=== PATIENT | female | born 1990 | race Caucasian/White ===

== ENCOUNTER 2024-07-11 11:18 | Outpatient (AMB) | payer BC, SELFPAY ==
--- NOTE | 2024-07-11 11:25 | MHC.PC.OV ---
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 Intake Note: new patient to establish care Allergies amoxicillin Allergy (Severe, Verified 07/11/24 11:30) Itching Medication List - Last Reconciled 07/11/24 by Gladis Wiley, IRRIGATION TAX ASSESSOR COLLECTOR- etonogestrel-ethinyl estradiol 0.12-0.015 mg/24 hr (NuvaRing) 1 vag ring vaginal Q4W omeprazole 40 mg PO DAILY Tobacco use date assessed: 07/11/24 Dental Screening Dental Screen Date: 07/11/24 Did you have a dental visit in the last 12 months?: Yes Did you have a dental problem in the last 6 months where you did not have access to dental care?: No Was dental information given to patient?: Patient has dentist HPI HPI Comments History of Present Illness Details 34 y/o F with obesity, GERD, chronic low back pain, seasonal allergies, mild intermittent asthma, history of iron-deficiency anemia 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 Surgical hx: None Family hx: Health Maintenance: Pap Flu 07/11/24 Tdap Specialists: Podiatry Dr Will Chiropracter needs new referral. ObGyn Dr Bravo first appt 10/2024 Here today to establish care. Moved here from [place] in September for work No medical records available to me today Reports a history of mild intermittent asthma. Worsened by seasonal allergies of which she uses an antihistamine prn. P.r.n. use of Tierra GERD is well controlled with daily omeprazole. Has had an EGD in the past, reports no hiatal hernia or Rdz's esophagus Did have anemia and was taking daily iron in the past. Her previous PCP advised her to stop taking as her labs did not indicate any further anemia. Denies any overt bleeding Has chronic low back pain. Was seeing a chiropractor in the past with positive relief. Needs a new referral Has an appointment with Podiatry to evaluate painful feet bilat. Reports that she sits with her ankles crossed and has pain with walking She was using NuvaRing in the past however did not have any refills when she moved. Since stopping she has had menstrual irregularities. She denies any chance of or STDs. Has an appointment to establish care with a new bar machine operator production provider with the 1st appointment in October of 2024 Finally she reports that since moving she has gained about 20 lb. She previously was prescribed phentermine by her previous primary care provider however was not taking consistently as she reports that she felt like she was dying and was having terrible personality changes that were intolerable. She did take half the dose and continue to have the same symptoms. Does have a treadmill at home and uses occasionally Exam Awake alert oriented, no acute distress Regular rate and rhythm Lung sounds clear to auscultation bilat Mood and affect appropriate Plan Routine screening labs today Flu shot today Referred to chiropractic medicine for back pain New prescription sent in for NuvaRing. Follow up with bar machine operator production for routine [facility] Omeprazole was refilled, albuterol p.r.n. sent in. Return to office in 4-6 week for a complete physical exam. Please try to have a copy of her medical records sent to me before this for review. This note is constructed using voice recognition software. While every effort has been made to ensure accuracy in inspector type, still errors may have been included Sometimes, these errors may affect the content or meaning of the given sentence . Total time spent caring for the patient today was 40 minutes. This includes time spent before the visit reviewing the chart, time spent during the visit, and time spent after the visit on documentation [facility] Medical History (Updated 07/11/24 @ 12:26 by Gladis Wiley [facility]) Headache GERD (gastroesophageal reflux disease) Sinusitis Asthma Surgical History (Updated 07/11/24 @ 11:37 by Marisol Calderon MA) No pertinent past surgical history Family History (Updated 07/11/24 @ 11:38 by Marisol Calderon MA) Maternal Grandmother Diabetes Cardiovascular disease Paternal Grandmother Cardiovascular disease Paternal Grandfather Cardiovascular disease Social History (Updated 07/11/24 @ 11:33 by Marisol Calderon MA) Household Members: None Both parents involved: No Caregiver staying overnight: No Housing: Apartment Are you a primary manager care management to a significant other at home: No Do you presently have visiting nurse or other home services: No 75 years or older and lives alone: No Alcohol intake: current Alcohol intake frequency: holidays/special occasions only Patient Tobacco Use Status: Never used Tobacco e-Cigarette/Vaping Use: Never Used service: No Current occupational status: employed 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 1. Little interest or pleasure in doing things: not at all 2. Feeling down, depressed, or hopeless: not at all 3. Trouble falling or staying asleep, or sleeping too much: not at all 4. Feeling tired or having little energy: several days 5. Poor appetite or overeating: several days 6. Feeling bad about yourself - or that you are a failure or have let yourself or your family down: not at all 7. Trouble concentrating on things, such as reading the newspaper or watching television: not at all 8. Moving or speaking so slowly that other people could have noticed. Or the opposite - being so fidgety or restless that you have been moving around a lot more than usual: not at all 9. Thoughts that you would be better off or of hurting yourself in some way: not at all Total score: 2 Depression Screening Interpretation: Negative Depression Screening Done: Yes 61383 - PHQ-9 Billing: Yes Source: Developed by Drs. Manav Sales, Minerva Kramer, Yimi Emerson and colleagues, with an educational jermaine from [employer]. Thrive Questionnaire Date Thrive assessed: 07/11/24 I am a: Patient What is your living situation today?: I have a steady place to live Within the past 12 months, did the food you bought not last and you didn't have the money to get more?: Never true Within the past 12 months, did you worry whether your food would run out before you got money to buy more?: Never true Do you have trouble paying for medicines?: No Do you have trouble getting transportation to medical appointments?: No Do you have trouble paying your heating and electricity bill?: No Do you have trouble taking care of your child, family member or friend?: No Do you have trouble with day-to-day activities such as bathing, preparing meals, shopping, managing finances, etc.?: No Are you currently unemployed and looking for a job?: No Are you interested in more education?: No Please select the resources that you would like help with: None Currently or been in a relationship where the following occur: No concerns reported THRIVE Score: 0 AUDIT C Alcohol Use Questionnaire (AUDIT-C) 1. How often do you have a drink containing alcohol?: Never 2. How many drinks containing alcohol do you have on a typical day when you are drinking?: 1 or 2 3. How often do you have six or more drinks on one occasion?: Never Total Score: 0 Score Reviewed/Action Taken: Yes AILEEN-7 AMB Questionnaire AILEEN-7 Date AILEEN - 7 assessed: 07/11/24 Feeling nervous, anxious, or on edge: 0 = Not at all Not being able to stop or control worryin = Not at all Worrying too much about different things: 0 = Not at all Trouble relaxin = Not at all Being so restless that it is hard to sit still: 0 = Not at all Becoming easily annoyed or irritable: 0 = Not at all Feeling afraid as if something awful might happen: 0 = Not at all Total AILEEN-7 score (0-4 normal; 5-9 mild; 10-14 moderate; 15-21 severe): 0 Source: Developed by Drs. Manav Sales, Minerva Kramer, Yimi Emerson and colleagues, with an educational jermaine from [employer]. AILEEN-7 Assessment Billing AILEEN-7 Assessment Tool: AILEEN-7 Assessment 11168 ACT Questionnaire In the past 4 weeks, how much of the time did your asthma keep you from getting as much done at work, school or at home?: None of the time During the past 4 weeks, how often have you had shortness of breath?: Not at all During the past 4 weeks, how often did your asthma symptoms wake you up at night or earlier than usual in the morning?: Not at all During the past 4 weeks, how often have you had to use your rescue inhaler or nebulizer medication?: Not at all How would you rate your asthma control during the past 4 weeks?: Completely controlled ACT Interpretation: Negative Score: 25 Physical exam (Primary Care) Vital Signs: Last Vital Signs Pulse 83 07/11/24 11:28 Resp 13 07/11/24 11:28 BP 124/70 07/11/24 11:28 Pulse Ox 98 07/11/24 11:28 Oxygen Delivery Method Room Air 07/11/24 11:28 BMI result Body Mass Index 39.2 BMI Assessment/Plan discussion: High BMI High, discussed plan: lifestyle Tobacco/Smoking Status: Tobacco use Status Tobacco use date assessed 07/11/24 07/11/24 11:34 Patient Tobacco Use Status Never used Tobacco 07/11/24 11:34 e-Cigarette/Vaping Use Never Used 07/11/24 11:34 PHQ-9: PHQ-9 Score PHQ-9: Total score 2 07/11/24 12:03 Depression Screening Interpretation: Negative Thrive Assessment: Date of Thrive Assessment Date Thrive assessed 07/11/24 07/11/24 11:27 Currently or been in a relationship where the following occur: No concerns reported Office Procedures Flu Questionnaire Does the patient have a severe egg allergy?: No Does the patient have severe life threatening allergies?: No Does the patient have a fever or illness today?: No Has the patient ever had Guillain-Heth Syndrome?: No Has the patient ever had any past reaction to a flu shot?: No Immunizations Fluarix Triv [id number] (PF) 45 mcg (15 mcg x 3)/0.5 mL IM syringe [facility] Administered by: Sarahi Larsen RN on 07/11/24 12:19 Dose Route Admin Location Dispensed Lot Number Expiration Date [facility] 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.5 mL IM Right Deltoid 0.5 mL [id number] 03/24/25 [id number] Make Meaning VIS Given Date VIS Provided VIS Publication Date 07/11/24 Single Vaccine 21 Eligibility Eligibility Date Funding Source Not [facility] Eligible 07/11/24 Private Coding Level of Care Code New Pt Level 3 (92423) Complex EM visit Add On G2211 Diagnoses Mild intermittent asthma without complication J45.20 Chronic midline low back pain without sciatica M54.50; G89.29 Chronicity: chronic Back pain laterality: midline Sciatica presence: without sciatica Gastroesophageal reflux disease with esophagitis without hemorrhage K21.00 Esophagitis bleeding: without hemorrhage Severe obesity (BMI 35.0-39.9) with comorbidity E66.01 Body mass index [BMI] 39.0-39.9, adult Z68.39 History of iron deficiency anemia Z86.2 Seasonal allergies J30.2 Laboratory exam ordered as part of routine general medical examination Z00.00 Additional Codes AILEEN-7 Assessment Billing - AILEEN-7 Assessment Tool: AILEEN-7 Assessment 13726 ([id number]) Asthma Control Questionnaire - ACT Interpretation: Negative ([id number]) Assessment & Plan Assessment & Plan (1) Mild intermittent asthma without complication: Code(s): J45.20 - Mild intermittent asthma, uncomplicated Category: Medical Plan: . (2) Lower back pain: Code(s): M54.50 - Low back pain, unspecified Category: Medical Qualifiers: Chronicity: chronic Back pain laterality: midline Sciatica presence: without sciatica Qualified Code(s): M54.50 - Low back pain, unspecified; G89.29 - Other chronic pain Plan: . (3) GERD with esophagitis: Code(s): K21.00 - Gastro-esophageal reflux disease with esophagitis, without bleeding Category: Medical Qualifiers: Esophagitis bleeding: without hemorrhage Qualified Code(s): K21.00 - Gastro-esophageal reflux disease with esophagitis, without bleeding Plan: . (4) Severe obesity (BMI 35.0-39.9) with comorbidity: Code(s): E66.01 - Morbid (severe) obesity due to excess calories Category: Medical Plan: . (5) Body mass index [BMI] 39.0-39.9, adult: Code(s): Z68.39 - Body mass index [BMI] 39.0-39.9, adult Category: Medical Plan: . (6) History of iron deficiency anemia: Code(s): Z86.2 - Personal history of diseases of the blood and blood-forming organs and certain disorders involving the immune mechanism Category: Medical Plan: . (7) Seasonal allergies: Code(s): J30.2 - Other seasonal allergic rhinitis Category: Medical Plan: . (8) Laboratory exam ordered as part of routine general medical examination: Code(s): Z00.00 - Encounter for general adult medical examination without abnormal findings Category: Medical Plan: . Orders: Orders Hemoglobin A1c Today K21.00 - Gastro-esophageal reflux disease with esophagitis, without bleeding, Z00.00 - Encounter for general adult medical examination without abnormal findings Vitamin B12 and Folate Today K21.00 - Gastro-esophageal reflux disease with esophagitis, without bleeding, Z00.00 - Encounter for general adult medical examination without abnormal findings Lipid Panel Today K21.00 - Gastro-esophageal reflux disease with esophagitis, without bleeding, Z00.00 - Encounter for general adult medical examination without abnormal findings Influenza [id number] Immunization Today Z23 - Encounter for immunization Complete Blood Count no Diff Today K21.00 - Gastro-esophageal reflux disease with esophagitis, without bleeding, Z00.00 - Encounter for general adult medical examination without abnormal findings Comprehensive Met. Panel Today K21.00 - Gastro-esophageal reflux disease with esophagitis, without bleeding, Z00.00 - Encounter for general adult medical examination without abnormal findings Microalbumin, Random (w Creat) Today K21.00 - Gastro-esophageal reflux disease with esophagitis, without bleeding, Z00.00 - Encounter for general adult medical examination without abnormal findings TSH reflex Free T4 Today K21.00 - Gastro-esophageal reflux disease with esophagitis, without bleeding, Z00.00 - Encounter for general adult medical examination without abnormal findings IRON PROFILE Today K21.00 - Gastro-esophageal reflux disease with esophagitis, without bleeding, Z00.00 - Encounter for general adult medical examination without abnormal findings Referrals Chiropractic Referral M54.50 - Low back pain, unspecified Medications: New omeprazole 40 mg PO DAILY 90 caps 3RF albuterol sulfate 90 mcg/actuation 2 puffs inhalation Q4-6H 30 days PRN 8.5 grams 0RF shortness of breath or wheezing etonogestrel-ethinyl estradiol 0.12-0.015 mg/24 hr (NuvaRing) leave in place for 3 weeks of a 4-week cycle 1 vag ring vaginal Q4W 3 ea 12RF Patient Instructions: Walk-In Care (Urgent Care): We Make it Easy Walk-in for urgent medical issues such as: ? Seasonal Allergies ? Insect Bites ? Cough ? Diarrhea ? Acute Asthma Attacks ? Back, Knee or Joint Pain ? Ear Infection ? Fever without a Rash ? Headaches ? Nausea ? [place], Rash or Skin Irritation ? Sore Throat ? Sports Physicals ? Vomiting Most insurances are accepted. Patients do not need to be part of the [facility] to seek care at the walk-in clinic. Locations [address] [facility] [place] [address] ? [phone] [facility] Walk-In Care in [place] provides services to ages 18 and over. Open Monday-Monday: 8 a.m. to 5 p.m. and Monday: 9 a.m. to 3 p.m.* *Hours may vary due to staffing availability. To confirm Walk-In Care hours in [place], please call [phone]. [address] [place] [address] ? [phone] [facility] Walk-In Care in [place] provides services to ages 12 and over. Open Monday-Monday: 8 a.m. to 5 p.m. Hours may vary due to staffing availability. To confirm Walk-In Care hours in [place], please call [phone]. LABORATORY SERVICES: [facility] ? Primary Location [address] [place] [address] Monday through Monday 6:00 AM ? 5:00 PM Monday 7:00 AM ? 11:00 AM* [phone] The [facility] is centrally located near the front entrance of the [facility] for easy outpatient access. Convenient parking is provided for outpatients. *Hours may vary due to staffing availability. To confirm Laboratory hours for any location, please call [phone]. Offsite Location For your convenience, we offer offsite laboratory draw stations at the following locations: [address] [place] [address] ? [address], [facility] Monday through Monday 7:30 AM ? 1:00 PM* [phone] *Hours may vary due to staffing availability. To confirm Laboratory hours for any location, please call [phone]. [place] ? [address] Monday through Monday 6:00 AM ? 3:30 PM* Monday 6:30 AM ? 3 PM* [phone] *Hours may vary due to staffing availability. To confirm Laboratory hours for any location, please call [phone] [place] [address] Monday through Monday 7:30 AM ? 4:00 PM* [phone] *Hours may vary due to staffing availability. To confirm Laboratory hours for any location, please call [phone] [place] [address] Monday through 9:00 AM ? 4:00 PM* *Hours may vary due to staffing availability. To confirm Laboratory hours for any location, please call [phone]. Appointments are not necessary. Walk-ins are welcome. Like all the departments throughout the [facility], our Lab undergoes frequent reviews to ensure the quality and accuracy of test results, and our staff takes special pride in its status as a nationally accredited facility. Patient Portal: ONE PATIENT. ONE RECORD. BETTER CARE. [facility] has a fully integrated, cutting-edge mobile electronic health information system that has revolutionized the way we care for our patients and manage our organization. This system improves communication and coordination enabling us to provide safe, higher-quality care, and an overall positive experience for staff and patients. Our first priority, as always, is to deliver the highest quality care possible. The system is running in the background supporting that priority. This portal is for all [facility] services and practices. If you are experiencing any technical difficulties with enrolling or logging into the Patient Portal please complete the [facility] Patient Portal Technical Support Form. [facility] now offers a new secure on-line interactive tool for patients to review their health information ? Patient Portal. This interactive web portal will enable patients and their families to take an active role in their care by providing easy, secure access to their health information via the internet. The Patient Portal provides patients with instant access to their health information, including laboratory results, medications, allergies, demographic information, visit history, and more. In addition to managing their own care, parents and health care proxies with authorized consent will appreciate the ability to access the records of those individuals for whom they provide care. Please note: if you wish to gain access (Proxy) to another patient?s portal, you will be required to come to the Medical Records Department in person at [facility]. Both the patient giving proxy access and the proxy will need to provide photo identification and complete the appropriate authorization. The Patient Portal also allows track their appointments online. The [facility] Patient Portal also saves patients time by allowing them to submit updates to their demographic and contact information prior to their visits. Portal email notifications will also alert patients to any new activity on their portal, such as test results and new appointments. In order to initially enroll in the [facility] Patient Portal, you will need to enter some required information including the following: ? your [facility] Medical Record number ? your personal home email address ? name ? date of Please note: In order to enroll in the [facility] Patient Portal, we need to have your email address on file in your electronic medical record. The email address needs to be specific for one person (yourself) in order for your Portal enrollment to be successful. You can update your email address in person with our Registration staff when you are registering for a hospital visit. Otherwise, you will need to come to the Health Information Management (Medical Records) Department at [facility]. We are open from Monday ? Monday from 7:30 a.m. ? 4:30 p.m. You will be required to present a photo id. Once you have successfully enrolled in the Patient Portal, you will receive a one-time user id and password for the Portal, sent to your email address. This will allow you to log into the Patient Portal within 99 hrs and reset your own logon id and password, and define personal security questions. Once your permanent login and password have been set, you can log into the [facility] Patient Portal at any time via the blue button above or from the Portal Logon button on any page of the [facility] website. [facility] encourage all of our patients to enroll in Patient Portal as it presents a valuable opportunity for patients and their families to actively participate in their care and stay healthy Welcome to [facility]. We look forward to working with you.
[2024-07-11 11:28] VITALS: BP 124/70; PULSE 83; RESP 13; O2SAT 98; BMI 39.2
== END 2024-07-11 12:23 | disposition home or self-care (01) ==
PROVIDERS: PCP Nurse Practitioner Family; Visit Provider Nurse Practitioner Family
DX: J45.20 Mild intermittent asthma, uncomplicated (principal); M54.50 Low back pain, unspecified; E66.812 Obesity, class 2; Z68.39 Body mass index [BMI] 39.0-39.9, adult; G89.29 Other chronic pain; K21.00 Gastro-esophageal reflux disease with esophagitis, without bleeding; Z86.2 Personal history of diseases of the blood and blood-forming organs and certain disorders involving the immune mechanism; J30.2 Other seasonal allergic rhinitis

== ENCOUNTER → 2024-07-11 11:18 | Outpatient (BNVA) | payer BC, SELFPAY | PROVIDERS: PCP Nurse Practitioner Family; Visit Provider Nurse Practitioner Family | DX: Z00.00 Encounter for general adult medical examination without abnormal findings (principal); J45.20 Mild intermittent asthma, uncomplicated; G89.29 Other chronic pain; M54.50 Low back pain, unspecified; K21.00 Gastro-esophageal reflux disease with esophagitis, without bleeding; E66.01 Morbid (severe) obesity due to excess calories; Z68.39 Body mass index [BMI] 39.0-39.9, adult; J30.2 Other seasonal allergic rhinitis; Z86.2 Personal history of diseases of the blood and blood-forming organs and certain disorders involving the immune mechanism; Z79.899 Other long term (current) drug therapy; Z23 Encounter for immunization | CPT/HCPCS: 90471; 90656; 96127; 96160 ==

== ENCOUNTER 2024-07-11 12:41 | Outpatient (REF) | payer BC, SELFPAY ==
[2024-07-11 14:39] LABS: Estimated Average Glucose 137 mg/dL; Hematocrit 41.2 % (37.0-47.0); Hemoglobin 12.8 g/dl (12.0-16.0); Hemoglobin A1C 153.6638 umol/L; Hemoglobin A1c % 6.4 % (<6.0); Mean Corpuscular HGB Conc 31.1 g/dl (31.0-35.0); Mean Corpuscular Hemoglobin 25.9 pg (27.0-33.0); Mean Corpuscular Volume 83.2 fL (80.0-98.0); Mean Platelet Volume 9.6 fL (9.4-12.3); Platelet Count 376 X10*3/uL (160-400); Red Blood Count 4.95 X10*6/uL (4.20-5.50); Red Cell Distribution Width 14.5 % (11.0-16.0); Total Hemoglobin (HGBA1C) 3282.0831 umol/L; White Blood Count 7.3 X10*3/uL (4.8-10.8)
[2024-07-11 15:00] LABS: Alanine Aminotransferase 27 U/L (0-31); Albumin Level 4.1 g/dL (3.5-5.0); Alkaline Phosphatase 100 U/L (39-117); Anion Gap 8 (12-20); Aspartate Amino Transferase 22 U/L (5-31); Bilirubin Total 0.3 mg/dL (0.0-1.0); Blood Urea Nitrogen 12 mg/dL (9-16); Calcium 8.7 mg/dL (8.4-10.2); Carbon Dioxide 26 mmol/L (22-29); Chloride 108 mmol/L (96-108); Cholesterol 157 mg/dL (<200); Estimated Glomerular Filt Rate > 60; Glucose Random 129 mg/dL (60-115); HDL Cholesterol 39 mg/dL (>40); Iron 28 mcg/dL (30-160); LDL Cholesterol Calculated 84 mg/dL (<100); Percent Iron Saturation 8 % (15-50); Potassium 4.1 mmol/L (3.3-5.1); Sodium 138 mmol/L (135-145); Total Iron Binding Capacity 351 mcg/dL (228-428); Total Protein 6.9 g/dL (6.5-8.0); Triglycerides 172 mg/dL (<150); Unsaturated Iron Binding 323 ug/dL
[2024-07-11 15:15] LABS: TSH reflex Free T4 1.52 uIU/mL (0.32-4.0)
[2024-07-11 15:24] LABS: Creatinine Urine 179.87 mg/dL; Microalbum/Creatinine Ratio Ur 7.7 ug/mg cr (<30)
[2024-07-11 15:27] LABS: Folate 9.9 ng/mL (> or = 4.0); Vitamin B12 573 pg/mL (200-900)
== END 2024-07-11 12:42 | disposition home or self-care (01) ==
LOC: HO.WFDLDS 12:41
PROVIDERS: Visit Provider Nurse Practitioner Family
DX: Z00.00 Encounter for general adult medical examination without abnormal findings (principal); K21.00 Gastro-esophageal reflux disease with esophagitis, without bleeding; Z13.1 Encounter for screening for diabetes mellitus
CPT/HCPCS: 36415; 80053; 80061; 82043; 82570; 82607; 82746; 83036; 83540; 84443; 85027

== ENCOUNTER 2024-08-07 08:06 | Outpatient (AMB) | payer BC, SELFPAY ==
--- NOTE | 2024-08-07 08:08 | MHC.PC.OV ---
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 Gas Distribution Required: No Is last menstrual period known: Yes Last menstrual period: 08/07/24 Post menopausal: No Patient : No Allergies amoxicillin Allergy (Severe, Verified 08/07/24 08:22) Itching Medication List - Last Reconciled 08/07/24 by Gladis Wiley, BOOKKEEPING SERVICE SALES AGENT- albuterol sulfate 90 mcg/actuation 2 puffs inhalation Q4-6H PRN 30 days etonogestrel-ethinyl estradiol 0.12-0.015 mg/24 hr (NuvaRing) 1 vag ring vaginal Q4W omeprazole 40 mg PO DAILY Tobacco use date assessed: 08/07/24 Dental Screening Dental Screen Date: 08/07/24 Did you have a dental visit in the last 12 months?: Yes Did you have a dental problem in the last 6 months where you did not have access to dental care?: No Was dental information given to patient?: Patient has dentist HPI HPI Comments History of Present Illness Details 34 y/o F with obesity, GERD, chronic low back pain, seasonal allergies, mild intermittent asthma, iron-deficiency anemia, prediabetes, AILEEN, family history of breast cancer, ovarian cysts, splenomegaly 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 Surgical hx: None Family hx: Dad , maternal grandmother with breast cancer, type 2 diabetes, heart disease , paternal grandmother with hypertension, stroke and cancer uncertain which kind, maternal aunt with breast cancer Health Maintenance: Pap pending appt, last one 2020 per records, normal Flu 07/11/24 Tdap due* Specialists: Podiatry Dr Will Chiropracter ObGyn Dr Bravo first appt 10/2024 Here today for a CPE The following were reviewed w/ her today: Labs from 07/11/2024 show a normal CBC with the exception of mildly low MCH 25.9, normal electrolytes, normal renal function, random glucose of 129, hemoglobin A1c 6.4% iron and % iron saturation low 28 and 8 with normal TIBC, normal LFTs, cholesterol is 157, LDL is 84, HDL is 39, triglycerides are mildly high at 172 however this was a nonfasting sample, normal B12 TSH and folate, normal urine microalbumin creatinine ratio Recovered from the flu last week. Iron Def anemia, tolerated Iron po in the past w/o GI side effects Prediabetes PHQ - related to wt gain/body image, would like therapy in the future, will hold off on referral @ this time. Asthma - chronic deep cough, since 2014. Has not used inhaler to help the cough. Noticed when eating diary she has this cough; when she does not her cough is better. Does suffer from seasonal allergies - itchy eyes, runny nose. Has occasional swelling of BLE that comes and goes. Plan Start OTC Iron take 1 tab QD. Start Metformin ER 500 mg po QD Cont all meds and care w/ care team Start Zyrtec, advised to take year round. Can consider referral to Allergy/immune in the future if needed; worried about starting daily inhaler w lactose allergy. Advised to monitor salt intake in diet. Elevate feet. Avoid tight restrictive clothing around waist. Avoid prolonged sitting. If edema in lower extremities worsens advised to let me know. Return to the office in 4 months to follow up on prediabetes, iron-deficiency anemia, weight with repeat labs done 1 week before, sooner as needed After patient left I was able to review her primary care records. Reports that the edema in bilateral lower extremities is chronic and she was on hydrochlorothiazide 25 mg previously. Also reports that her asthma was out of control and was referred to pulmonology. Did require an emergency room visit for treatment which included Solu-Medrol and repeated nebulizers. Will need to revisit this going forward. She has had ultrasound imaging done of her left lower extremity in 2022 which was unremarkable. Will also need to consider genetics referral for family hx of breast ca. [facility] Medical History (Updated 08/07/24 @ 15:43 by Gladis Wiley [facility]) History of iron deficiency anemia Headache GERD (gastroesophageal reflux disease) Sinusitis Asthma Surgical History (Updated 07/11/24 @ 11:37 by Marisol Calderon MA) No pertinent past surgical history Family History (Updated 07/11/24 @ 11:38 by Marisol Calderon MA) Maternal Grandmother Diabetes Cardiovascular disease Paternal Grandmother Cardiovascular disease Paternal Grandfather Cardiovascular disease Social History (Updated 07/11/24 @ 11:33 by Marisol Calderon MA) Household Members: None Both parents involved: No Caregiver staying overnight: No Housing: Apartment Are you a primary associate director career services to a significant other at home: No Do you presently have visiting nurse or other home services: No 75 years or older and lives alone: No Alcohol intake: current Alcohol intake frequency: holidays/special occasions only Patient Tobacco Use Status: Never used Tobacco e-Cigarette/Vaping Use: Never Used Second Hand Smoke Exposure: Yes service: No Current occupational status: employed 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 1. Little interest or pleasure in doing things: not at all 2. Feeling down, depressed, or hopeless: not at all 3. Trouble falling or staying asleep, or sleeping too much: not at all 4. Feeling tired or having little energy: several days 5. Poor appetite or overeating: nearly every day 6. Feeling bad about yourself - or that you are a failure or have let yourself or your family down: several days 7. Trouble concentrating on things, such as reading the newspaper or watching television: not at all 8. Moving or speaking so slowly that other people could have noticed. Or the opposite - being so fidgety or restless that you have been moving around a lot more than usual: not at all 9. Thoughts that you would be better off or of hurting yourself in some way: not at all Total score: 5 Depression Screening Interpretation: Negative Depression Screening Done: Yes 47739 - PHQ-9 Billing: Yes Source: Developed by Drs. Manav Sales, Minerva Kramer, Yimi Emerson and colleagues, with an educational jermaine from [employer]. Thrive Questionnaire Date Thrive assessed: 08/07/24 I am a: Patient What is your living situation today?: I have a steady place to live Within the past 12 months, did the food you bought not last and you didn't have the money to get more?: Never true Within the past 12 months, did you worry whether your food would run out before you got money to buy more?: Never true Do you have trouble paying for medicines?: No Do you have trouble getting transportation to medical appointments?: No Do you have trouble paying your heating and electricity bill?: No Do you have trouble taking care of your child, family member or friend?: No Do you have trouble with day-to-day activities such as bathing, preparing meals, shopping, managing finances, etc.?: No Are you currently unemployed and looking for a job?: No Are you interested in more education?: No Please select the resources that you would like help with: None Currently or been in a relationship where the following occur: No concerns reported THRIVE Score: 0 AUDIT C Alcohol Use Questionnaire (AUDIT-C) 1. How often do you have a drink containing alcohol?: Never 3. How often do you have six or more drinks on one occasion?: Never Total Score: 0 Score Reviewed/Action Taken: Yes AILEEN-7 AMB Questionnaire AILEEN-7 Date AILEEN - 7 assessed: 08/07/24 Feeling nervous, anxious, or on edge: 0 = Not at all Not being able to stop or control worryin = Not at all Worrying too much about different things: 0 = Not at all Trouble relaxin = Not at all Being so restless that it is hard to sit still: 0 = Not at all Becoming easily annoyed or irritable: 0 = Not at all Feeling afraid as if something awful might happen: 0 = Not at all Total AILEEN-7 score (0-4 normal; 5-9 mild; 10-14 moderate; 15-21 severe): 0 Source: Developed by Drs. Manav Sales, Minerva Kramer, Yimi Emerson and colleagues, with an educational jermaine from [employer]. AILEEN-7 Assessment Billing AILEEN-7 Assessment Tool: AILEEN-7 Assessment 24474 ACT Questionnaire In the past 4 weeks, how much of the time did your asthma keep you from getting as much done at work, school or at home?: None of the time During the past 4 weeks, how often have you had shortness of breath?: Not at all During the past 4 weeks, how often did your asthma symptoms wake you up at night or earlier than usual in the morning?: Not at all During the past 4 weeks, how often have you had to use your rescue inhaler or nebulizer medication?: 1-2 times a week How would you rate your asthma control during the past 4 weeks?: Completely controlled Score: 22 Review of Systems Const Details: Constitutional: Denies fever. Skin: Denies rash. Eye: Denies eye pain. ENMT: Denies sore throat and nasal congestion. Respiratory: Denies shortness of breath Gastrointestinal: Denies nausea, vomiting or abdominal pain. Cardiovascular: Denies chest pain and syncope. Genitourinary: Denies dysuria. Musculoskeletal: Denies extremity pain. Neurologic: Denies headaches, confusion, and weakness. Psychiatric: Denies suicidal thoughts and substance abuse. Allergy/ Immunologic: Denies impaired immunity. Physical exam (Primary Care) Vital Signs: Last Vital Signs Temp 99.3 F 08/07/24 08:15 Pulse 77 08/07/24 08:15 Resp 16 08/07/24 08:15 BP 110/74 08/07/24 08:15 Pulse Ox 97 08/07/24 08:15 Oxygen Delivery Method Room Air 08/07/24 08:15 BMI result Body Mass Index 39.2 BMI Assessment/Plan discussion: High BMI High, discussed plan: lifestyle Tobacco/Smoking Status: Tobacco use Status Tobacco use date assessed 08/07/24 08/07/24 08:18 Patient Tobacco Use Status Never used Tobacco 08/07/24 08:11 e-Cigarette/Vaping Use Never Used 08/07/24 08:11 PHQ-9: PHQ-9 Score PHQ-9: Total score 5 08/07/24 10:25 Depression Screening Interpretation: Negative Thrive Assessment: Date of Thrive Assessment Date Thrive assessed 08/07/24 08/07/24 08:11 Currently or been in a relationship where the following occur: No concerns reported Const Other: General: Well developed, well nourished, in no acute distress. Appears stated age. Head: Normocephalic, atraumatic. Eyes: Pupils are equal, round and reactive to light and accommodation. Conjunctivae are clear. Vision grossly normal. Ears: TMs clear AU, EACS WNL Nose: Patent, without discharge. Mouth: There are no ulcers or lesions noted. No inflammation, no post nasal drip, no plaques nor exudates. Neck: Supple, no adenopathy or thyromegaly. Lungs: Clear to auscultation bilaterally. No rales, rhonchi or wheeze noted. Good air flow in all bourgeois. Heart: Regular rate and rhythm. No murmurs, click, rubs or gallops are noted. Abdomen: Bowel sounds present in all quadrants. The abdomen is soft, nontender, with no masses or organomegaly noted. No hernias are noted. Musculoskeletal: Joints are nontender, without swelling, redness, or effusions. Range of motion is observed to be normal. Chronic low back pain Pulses: Peripheral pulses are equal and palpable bilaterally. Extremities: No clubbing, cyanosis is noted. Trace to +1 edema bilateral lower extremities Neurologic: Gait and station normal. Cranial Nerves 2-12 intact. Motor strength grossly symmetrical and intact. No sensory loss. Balance normal. Skin: No rashes, ulcers, or lesions noted. Turgor is good. Skin color is good. Hair and nails are without abnormalities. Psych: Normal eye contact, affect and mood appropriate, and normal interactions. Patient is alert and appropriate to context. Coding Level of Care Code Est Pt Prev Care 18-39y(09189) Diagnoses Encounter for general adult medical examination without abnormal findings Z00.00 Mild intermittent asthma without complication J45.20 Iron deficiency anemia, unspecified iron deficiency anemia type D50.9 Iron deficiency anemia type: unspecified iron deficiency Prediabetes R73.03 Splenomegaly R16.1 Cyst of left ovary N83.202 Laterality: left Family history of breast cancer Z80.3 AILEEN (generalized anxiety disorder) F41.1 Additional Codes AILEEN-7 Assessment Billing - AILEEN-7 Assessment Tool: AILEEN-7 Assessment 09179 ([id number]) PHQ-9 - 86546 - PHQ-9 Billing: Yes ([id number]) Assessment & Plan Assessment & Plan (1) Encounter for general adult medical examination without abnormal findings: Code(s): Z00.00 - Encounter for general adult medical examination without abnormal findings Plan: . (2) Mild intermittent asthma without complication: Code(s): J45.20 - Mild intermittent asthma, uncomplicated Category: Medical Plan: . (3) Iron deficiency anemia: Code(s): D50.9 - Iron deficiency anemia, unspecified Category: Medical Qualifiers: Iron deficiency anemia type: unspecified iron deficiency Qualified Code(s): D50.9 - Iron deficiency anemia, unspecified Plan: . (4) Prediabetes: Code(s): R73.03 - Prediabetes Category: Medical Plan: . (5) Splenomegaly: Comment: noted on imaging 2022 Code(s): R16.1 - Splenomegaly, not elsewhere classified Category: Medical Plan: . (6) Ovarian cyst: Comment: noted on imaging 2022 Code(s): N83.209 - Unspecified ovarian cyst, unspecified side Category: Medical Qualifiers: Laterality: left Qualified Code(s): N83.202 - Unspecified ovarian cyst, left side Plan: . (7) Family history of breast cancer: Code(s): Z80.3 - Family history of malignant neoplasm of breast Category: Medical Plan: . (8) AILEEN (generalized anxiety disorder): Code(s): F41.1 - Generalized anxiety disorder Category: Medical Plan: . Orders: Orders Comprehensive Met. Panel 11/23/24 D50.9 - Iron deficiency anemia, unspecified, J45.20 - Mild intermittent asthma, uncomplicated, R73.03 - Prediabetes IRON PROFILE 11/23/24 D50.9 - Iron deficiency anemia, unspecified, J45.20 - Mild intermittent asthma, uncomplicated, R73.03 - Prediabetes Hemoglobin A1c 11/23/24 D50.9 - Iron deficiency anemia, unspecified, J45.20 - Mild intermittent asthma, uncomplicated, R73.03 - Prediabetes Complete Blood Count no Diff 11/23/24 D50.9 - Iron deficiency anemia, unspecified, J45.20 - Mild intermittent asthma, uncomplicated, R73.03 - Prediabetes Medications: New cetirizine (Zyrtec) 10 mg PO DAILY PRN 90 tabs 2RF allergy symptoms metformin ER 500 mg PO QPM 90 tabs 0RF Patient Instructions: Health screenings for women You should visit your health care provider from time to time, even if you are healthy. The purpose of these visits is to: Screen for medical issues Assess your risk for future medical problems Encourage a healthy lifestyle Update vaccinations and other preventive care services Help you get to know your provider in case of an illness Information Even if you feel fine, you should still see your provider for regular checkups. These visits can help you avoid problems in the future. For example, the only way to find out if you have high blood pressure is to have it checked regularly. High blood sugar and high cholesterol levels also may not have any symptoms in the early stages. A simple blood test can check for these conditions. There are specific times when you should see your provider or receive specific health screenings. The [place] Preventive Services Task Force publishes a list of recommended screenings. Below are screening guidelines for women ages 18 to 39. BLOOD PRESSURE SCREENING Your blood pressure should be checked at least once every 3 to 5 years if: Your blood pressure is in the normal range (top number less than 120 mm Hg and bottom number less than 80 mm Hg) You don't have risk factors for high blood pressure Ask your provider if you need your blood pressure checked more often if: The top number is 120 to 129 mm Hg or the bottom number is 70 to 79 mm Hg You have diabetes, heart disease, kidney problems, are overweight, or have certain other health conditions You have a first-degree relative with high blood pressure You are Black You had high blood pressure during a If the top number is 130 mm Hg or greater or the bottom number is 80 mm Hg or greater, this is considered stage 1 hypertension. Schedule an appointment with your provider to learn how you can reduce your blood pressure. Watch for blood pressure screenings in your area. Ask your provider if you can stop in to have your blood pressure checked. BREAST CANCER SCREENING Experts do not agree about the benefits of breast self-exams in finding breast cancer or saving lives. Talk to your provider about what is best for you. A screening mammogram is not recommended for most women under age 40. Your provider may discuss and recommend mammograms, MRI scans, or ultrasounds if you have an increased risk for breast cancer, such as: A mother or sister who had breast cancer at a young age (most often starting screening earlier than the age the close relative was diagnosed) You carry a high-risk genetic marker CERVICAL CANCER SCREENING Cervical cancer screening should start at age 21 years unless your provider advises otherwise. After the first test: Women ages 21 through 29 should have a Pap test every 3 years. Exoprts do not agree on whether HPV testing is recommended for this age group. Women ages 30 through 65 should be screened with either a Pap test every 3 years or the HPV test every 5 years or both tests every 5 years (called cotesting ). Women who have been treated for precancer (cervical dysplasia) should continue to have Pap tests for 20 years after treatment or until age 65, whichever is longer. If you have had your uterus and cervix removed (total hysterectomy), and you have not been diagnosed with cervical cancer or precancer (high grade cervical neoplasia), you do not need cervical cancer screening. CHOLESTEROL SCREENING Cholesterol screening should begin at: Age 45 for women with no known risk factors for coronary heart disease Age 20 for women with known risk factors for coronary heart disease Repeat cholesterol screening should take place: Every 5 years for women with normal cholesterol levels More often if changes occur in lifestyle (including weight gain and diet) More often if you have diabetes, heart disease, kidney problems, or certain other conditions DIABETES SCREENING You should be screened for diabetes starting at age 35 and then repeated every 3 years if you have no risk factors for diabetes. Screening may need to start earlier and be repeated more often if you have other risk factors for diabetes, such as: You have a first degree relative with diabetes. You are overweight or have obesity. You have high blood pressure, prediabetes, or a history of heart disease. Screening for diabetes should be done if you are planning to become and you are overweight and have other risk factors such as high blood pressure. DENTAL EXAM Go to the dentist once or twice every year for an exam and cleaning. Your dentist will evaluate if you need more frequent visits. EYE EXAM Have an eye exam every 5 to 10 years before age 40. If you have vision problems, have an eye exam every 2 years or more often if recommended by your provider. You should have an eye exam that includes an examination of your retina (back of your eye) at least every year if you have diabetes. IMMUNIZATIONS Commonly needed vaccines include: Flu shot: get one every year. COVID-19 vaccine: ask your provider what is best for you. Tetanus-diphtheria and acellular pertussis (Tdap) vaccine: have one at or after age 19 as one of your tetanus-diphtheria vaccines if you did not receive it as an adolescent. Tetanus-diphtheria: have a booster (or Tdap) every 10 years. Varicella vaccine: receive 2 doses if you never had chickenpox or the varicella vaccine. Hepatitis B vaccine: receive 2, 3, or 4 doses, depending on your exact circumstances. Measles, mumps, and rubella (MMR) vaccine: receive 1 to 2 doses if you are not already immune to MMR. Your provider can tell you if you are immune. Ask your provider about the human papillomavirus (HPV) vaccine if: You have not received the HPV vaccine in the past You have not completed the full vaccine series (you should catch up on this shot) Ask your provider if you should receive other immunizations if you have certain health problems that increase your risk for some diseases such as pneumonia. INFECTIOUS DISEASE SCREENING Women who are sexually active should be screened for chlamydia and gonorrhea up until age 25. Women 25 years and older should be screened for chlamydia and gonorrhea if at high risk. Screening for hepatitis C: All adults ages 18 to 79 should get a one-time test for hepatitis C. people should be screened at every . Screening for human immunodeficiency virus (HIV): All people ages 15 to 65 should get a one-time test for HIV. Depending on your lifestyle and medical history, you may also need to be screened for infections such as syphilis and HIV, as well as other infections. PHYSICAL EXAM All adults should visit their provider from time to time, even if they are healthy. The purpose of these visits is to: Screen for disease Assess your risk of future medical problems Encourage a healthy lifestyle Update your vaccinations and other preventive care services Maintain a relationship with a provider in case of an illness Your height, weight, and BMI should be checked at every exam. During your exam, your provider may ask you about: Depression and anxiety Diet and exercise Alcohol and tobacco use Safety issues, such as using seat belts, smoke detectors, and intimate partner violence Your medicines and risk for interactions SKIN SELF-EXAM Your provider may check your skin for signs of skin cancer, especially if you're at high risk, such as if you: Have had skin cancer before Have close relatives with skin cancer Have a weakened immune system OTHER SCREENING Talk with your provider about colon cancer screening if you have a strong family history of colon cancer or polyps, or if you have had inflammatory bowel disease or polyps yourself. Routine bone density screening of women under 40 is not recommended.
[2024-08-07 08:15] VITALS: BP 110/74; PULSE 77; RESP 16; TEMP 37.4; O2SAT 97; BMI 39.2
== END 2024-08-07 08:57 | disposition home or self-care (01) ==
PROVIDERS: PCP Nurse Practitioner Family; Visit Provider Nurse Practitioner Family
DX: Z00.00 Encounter for general adult medical examination without abnormal findings (principal); J45.20 Mild intermittent asthma, uncomplicated; D50.9 Iron deficiency anemia, unspecified; R73.03 Prediabetes; R16.1 Splenomegaly, not elsewhere classified; N83.202 Unspecified ovarian cyst, left side; Z80.3 Family history of malignant neoplasm of breast; F41.1 Generalized anxiety disorder

== ENCOUNTER → 2024-08-07 08:06 | Outpatient (BNVA) | payer BC, SELFPAY | PROVIDERS: PCP Nurse Practitioner Family; Visit Provider Nurse Practitioner Family | DX: Z00.00 Encounter for general adult medical examination without abnormal findings (principal); J45.20 Mild intermittent asthma, uncomplicated; D50.9 Iron deficiency anemia, unspecified; R73.03 Prediabetes; R16.1 Splenomegaly, not elsewhere classified; N83.202 Unspecified ovarian cyst, left side; F41.1 Generalized anxiety disorder; Z80.3 Family history of malignant neoplasm of breast | CPT/HCPCS: 96127; 96160 ==

== ENCOUNTER 2024-11-26 08:18 | Outpatient (REF) | payer SELFPAY ==
[2024-11-26 11:32] LABS: Hematocrit 42.4 % (37.0-47.0); Hemoglobin 13.9 g/dl (12.0-16.0); Mean Corpuscular HGB Conc 32.8 g/dl (31.0-35.0); Mean Corpuscular Hemoglobin 28.6 pg (27.0-33.0); Mean Corpuscular Volume 87.2 fL (80.0-98.0); Mean Platelet Volume 9.3 fL (9.4-12.3); Platelet Count 313 X10*3/uL (160-400); Red Blood Count 4.86 X10*6/uL (4.20-5.50); Red Cell Distribution Width 13.3 % (11.0-16.0); White Blood Count 6.4 X10*3/uL (4.8-10.8)
[2024-11-26 11:50] LABS: Estimated Average Glucose 131 mg/dL; Hemoglobin A1c % 6.2 % (<6.0)
[2024-11-26 12:03] LABS: Alanine Aminotransferase 8 U/L (0-31); Albumin Level 3.7 g/dL (3.5-5.0); Alkaline Phosphatase 72 U/L (39-117); Anion Gap 10 (12-20); Aspartate Amino Transferase 17 U/L (5-31); Bilirubin Total 0.3 mg/dL (0.0-1.0); Blood Urea Nitrogen 13 mg/dL (9-16); Calcium 8.3 mg/dL (8.4-10.2); Carbon Dioxide 23 mmol/L (22-29); Chloride 110 mmol/L (96-108); Estimated Glomerular Filt Rate > 60; Glucose Random 124 mg/dL (60-115); Iron 65 mcg/dL (30-160); Percent Iron Saturation 22 % (15-50); Sodium 139 mmol/L (135-145); Total Iron Binding Capacity 294 mcg/dL (228-428); Total Protein 6.8 g/dL (6.5-8.0); Unsaturated Iron Binding 229 ug/dL
== END 2024-11-26 08:19 | disposition home or self-care (01) ==
LOC: HO.WFDLDS 08:18
PROVIDERS: Visit Provider Nurse Practitioner Family
DX: D50.9 Iron deficiency anemia, unspecified (principal); R73.03 Prediabetes; J45.20 Mild intermittent asthma, uncomplicated
CPT/HCPCS: 36415; 80053; 83036; 83540; 85027

== ENCOUNTER 2024-12-03 08:19 | Outpatient (AMB) | payer BC, SELFPAY ==
--- NOTE | 2024-12-03 08:25 | MHC.PC.OV ---
Vital Signs 12/03/24 08:38 Height 5 ft 3 in Weight 219 lb 6 oz BMI 38.9 BP 96/65 Blood Pressure Location Lt brachial Position Sitting Respiration 12 Pulse 58 Pulse Source Pulse Oximeter Temp 97.1 F Temp Source Oral Pulse Oximetry (%) 97 Oxygen Delivery Method Room Air Intake Visit Reasons: 4 mo 30 min fu prediab,anemia, wt labs 1 week Intake Note: 4 month follow up Piano Builder Required: No Allergies amoxicillin Allergy (Severe, Verified 12/03/24 09:06) Itching Medication List - Last Reconciled 12/03/24 by Gladis Wiley, [facility]- albuterol sulfate 90 mcg/actuation 2 puffs inhalation Q4-6H PRN 30 days etonogestrel-ethinyl estradiol 0.12-0.015 mg/24 hr (NuvaRing) 1 vag ring vaginal Q4W levocetirizine 5 mg PO DAILY PRN metformin ER 500 mg PO QPM omeprazole 40 mg PO DAILY Tobacco use date assessed: 12/03/24 Dental Screening Dental Screen Date: 12/03/24 Did you have a dental visit in the last 12 months?: Yes Did you have a dental problem in the last 6 months where you did not have access to dental care?: No Was dental information given to patient?: Patient has dentist HPI HPI Comments History of Present Illness Details 34 y/o F with obesity, GERD, chronic low back pain, seasonal allergies, mild intermittent asthma, iron-deficiency anemia, prediabetes, AILEEN, family history of breast cancer, ovarian cysts, splenomegaly 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 Surgical hx: None Family hx: Dad , maternal grandmother with breast cancer, type 2 diabetes, heart disease , paternal grandmother with hypertension, stroke and cancer uncertain which kind, maternal aunt with breast cancer Health Maintenance: Pap pending appt, last one 2020 per records, normal Flu 07/11/24 Tdap due* Specialists: Podiatry Dr Will using insoles Chiropractor- no longer going ObGyn Dr Bravo first appt 10/2024 concern for PCOS Here today for routine of conditions New complaints Blood nose, left side, self limiting. no trauma or nasal spray use. started during winter months Feeling more irritable and anxious at times. Was on Paxil after the of her father but stopped as it made her feel happening and she did not think that she should be happy active the of her father. She recently moved in with her on. While this is a good situation it is a change in her social environment. She has joined a temple. She wonders if there is any religious counseling that she was able to attend. She is considering starting a happy gummy which is [id number]-[id number] GERD - not taking PPI forgets in the AM. cont w/ sx. Asthma reports that she has a wheezing at night she is not using her inhaler Seasonal allergies taking Xyzal which seems to have improved her allergy symptoms however she continues with nasal congestion and some coughing symptoms are worse at night interested in allergy referral Saw security operations analyst. Reports there was a concern for PCOS. Prediabetes her A1c has improved she is tolerating metformin weight is down 3 lb she started intermittent fasting She saw Podiatry for the pain and swelling in her feet it was improved after the start of orthotics Iron-deficiency anemia is resolved with the use of iron once a day she was having no GI side effects she denies any overt bleeding She was complaining of low energy which did seem to improve after taking the iron supplement however this seems to continue she can correlate it directly with her mood she wonders if she was seasonal affective disorder Denies si/hi. General: Well developed, well nourished, in no acute distress. Appears stated age. Head: Normocephalic, atraumatic. Eyes: Pupils are equal, round and reactive to light and accommodation. Conjunctivae are clear. Vision grossly normal. Ears: TMs intact + congestion bilat L>R Nose: turbinates pale and edematous, dry and bloody on the L, clear drainage no sinus tenderness Mouth: There are no ulcers or lesions noted. No inflammation, no post nasal drip, no plaques nor exudates. Lungs: Clear to auscultation bilaterally. No rales, rhonchi or wheeze noted. Good air flow in all bourgeois. Heart: Regular rate and rhythm. No murmurs, click, rubs or gallops are noted. Extremities: No clubbing, cyanosis is noted. trace edema ble Psych: Normal eye contact, affect and mood appropriate, and normal interactions. Patient is alert and appropriate to context. Tearful when talking about of Dad. Results Labs 3/4/25 normal CBC normal electrolytes normal renal function random glucose 124 hemoglobin A1c improved at 6.2% (6.4%) calcium low at 8.3 normal iron profile normal liver profile Discussion Notes I discussed with the patient the multiple chronic conditions, including iron deficiency anemia and prediabetes, and the ongoing management strategies to optimize health outcomes. I emphasized the importance of continuing iron supplements and discussed the potential benefit of increasing the metformin dosage to enhance glycemic control, particularly if PCOS is confirmed. We outlined the need for allergy/immunology consultation in [place] to assess and manage persistent allergic symptoms. I advised continuing current treatments for asthma and outlined the potential need for a daily inhaler if symptoms persist. We reviewed the patient's psychological well-being, particularly considering environmental triggers for mood disturbance, and the subsequent pursuit of Christianity-based counseling, while ensuring safety by assessing mood stability. The patient consented to treatment changes and agreed on the outlined plans for diagnostic and therapeutic follow-ups. Assessment and Plan 1. Iron Deficiency Anemia: The patient's iron deficiency anemia is well managed with current supplementation, showing stable energy levels. Recommended to continue current regime allowing for further monitoring. 2. Prediabetes: Improvement noted in HbA1c. Increased metformin dosage prescribed to enhance control. Advise adherence to current lifestyle modifying regime for further benefit. 3. Seasonal Allergic Rhinitis: Symptoms warrant referral to an heating repair technician for detailed assessment. Continued Xyzal and environmental adjustments implemented to alleviate symptoms. 4. Edema: Resolved with orthotics and dietary adjustments, no additional interventions required. 5. Asthma: Mild controlled symptoms observed, advised appropriate albuterol use during nocturnal episodes. Further assessment might introduce more robust control, allergists consulted as necessary. 6. Mood Disturbance: Suggested Christianity-based counseling referral to address mood symptoms exacerbated by seasonal and situational changes. Continuous mental health monitoring, initiating pharmacotherapy if warranted. ok to try otc happy gummy 7. Polycystic Ovary Syndrome (Suspected): Referral to gynecology and managing through weight control protocols and enhanced metformin strategy. 8. GERD take PPI at HS Patient Instructions - Continue taking prescribed iron supplements daily. - Take increased metformin dosage of 750 mg as directed. - Use Xyzal as prescribed for allergies and try saline nasal sprays to ease dryness. - Avoid salt to manage edema. - Use the albuterol inhaler as needed during wheezing episodes. - Pursue Christianity-based counseling to address mood concerns. - Take omeprazole at HS - Follow up in three months with labs done one week before the appointment. Consent Patient was informed and verbally consented to the use of an ambient scribe for clinic note documentation during this visit. Total time spent caring for the patient today was 40 minutes. This includes time spent before the visit reviewing the chart, time spent during the visit, and time spent after the visit on documentation, reviewing laboratory results, diagnostic imaging, medications, performing a medically necessary evaluation, counseling on diagnoses, care coordination, ordering appropriate tests, ordering appropriate medications, review of tests performed by other providers, reporting test results with the patient, communication with other healthcare providers. [facility] Medical History History of iron deficiency anemia Headache GERD (gastroesophageal reflux disease) Sinusitis Asthma Surgical History No pertinent past surgical history Family History Maternal Grandmother Diabetes Cardiovascular disease Paternal Grandmother Cardiovascular disease Paternal Grandfather Cardiovascular disease Social History Household Members: None Both parents involved: No Caregiver staying overnight: No Housing: Apartment Are you a primary aged or disabled care worker to a significant other at home: No Do you presently have visiting nurse or other home services: No 75 years or older and lives alone: No Alcohol intake: current Alcohol intake frequency: holidays/special occasions only Patient Tobacco Use Status: Never used Tobacco e-Cigarette/Vaping Use: Never Used Second Hand Smoke Exposure: Yes service: No Current occupational status: employed 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 1. Little interest or pleasure in doing things: several days 2. Feeling down, depressed, or hopeless: several days 3. Trouble falling or staying asleep, or sleeping too much: several days 4. Feeling tired or having little energy: nearly every day 5. Poor appetite or overeating: not at all 6. Feeling bad about yourself - or that you are a failure or have let yourself or your family down: more than half the days 7. Trouble concentrating on things, such as reading the newspaper or watching television: not at all 8. Moving or speaking so slowly that other people could have noticed. Or the opposite - being so fidgety or restless that you have been moving around a lot more than usual: not at all 9. Thoughts that you would be better off or of hurting yourself in some way: not at all Total score: 8 Depression Screening Interpretation: Positive Depression Screening Follow-up: Existing condition Depression Screening Done: Yes 33874 - PHQ-9 Billing: Yes Source: Developed by Drs. Manav Sales, Minerva Kramer, Yimi Emerson and colleagues, with an educational jermaine from [employer]. Thrive Questionnaire Date Thrive assessed: 12/03/24 I am a: Patient What is your living situation today?: I have a steady place to live Within the past 12 months, did the food you bought not last and you didn't have the money to get more?: Never true Within the past 12 months, did you worry whether your food would run out before you got money to buy more?: Never true Do you have trouble paying for medicines?: No Do you have trouble getting transportation to medical appointments?: No Do you have trouble paying your heating and electricity bill?: No Do you have trouble taking care of your child, family member or friend?: No Do you have trouble with day-to-day activities such as bathing, preparing meals, shopping, managing finances, etc.?: No Are you currently unemployed and looking for a job?: No Are you interested in more education?: No Please select the resources that you would like help with: None Currently or been in a relationship where the following occur: No concerns reported THRIVE Score: 0 AUDIT C Alcohol Use Questionnaire (AUDIT-C) 1. How often do you have a drink containing alcohol?: Never 3. How often do you have six or more drinks on one occasion?: Never Total Score: 0 Score Reviewed/Action Taken: Yes AILEEN-7 AMB Questionnaire AILEEN-7 Date AILEEN - 7 assessed: 12/03/24 Feeling nervous, anxious, or on edge: 0 = Not at all Not being able to stop or control worryin = Not at all Worrying too much about different things: 0 = Not at all Trouble relaxin = Not at all Being so restless that it is hard to sit still: 1 = Several days Becoming easily annoyed or irritable: 2 = More than half the days Feeling afraid as if something awful might happen: 0 = Not at all Total AILEEN-7 score (0-4 normal; 5-9 mild; 10-14 moderate; 15-21 severe): 3 Source: Developed by Drs. Manav Sales, Minerva Kramer, Yimi Emerson and colleagues, with an educational jermaine from [employer]. AILEEN-7 Assessment Billing AILEEN-7 Assessment Tool: AILEEN-7 Assessment 25073 Physical exam (Primary Care) Vital Signs: Last Vital Signs Temp 97.1 F 12/03/24 08:38 Pulse 58 12/03/24 08:38 Resp 12 12/03/24 08:38 BP 96/65 12/03/24 08:38 Pulse Ox 97 12/03/24 08:38 Oxygen Delivery Method Room Air 12/03/24 08:38 BMI result Body Mass Index 38.9 BMI Assessment/Plan discussion: High BMI High, discussed plan: lifestyle Tobacco/Smoking Status: Tobacco use Status Tobacco use date assessed 12/03/24 12/03/24 08:26 Patient Tobacco Use Status Never used Tobacco 12/03/24 08:26 e-Cigarette/Vaping Use Never Used 12/03/24 08:26 PHQ-9: PHQ-9 Score PHQ-9: Total score 8 12/03/24 08:26 Depression Screening Interpretation: Positive Depression Screening Follow-up: Existing condition Thrive Assessment: Date of Thrive Assessment Date Thrive assessed 12/03/24 12/03/24 08:26 Currently or been in a relationship where the following occur: No concerns reported Coding Level of Care Code Est Pt Level 5 (91036) Complex EM visit Add On G2211 Diagnoses Iron deficiency anemia, unspecified iron deficiency anemia type D50.9 Iron deficiency anemia type: unspecified iron deficiency Seasonal allergies J30.2 AILEEN (generalized anxiety disorder) F41.1 Gastroesophageal reflux disease with esophagitis without hemorrhage K21.00 Esophagitis bleeding: without hemorrhage Mild intermittent asthma without complication J45.20 Prediabetes R73.03 Body mass index [BMI] 39.0-39.9, adult Z68.39 Severe obesity (BMI 35.0-39.9) with comorbidity E66.01 Additional Codes AILEEN-7 Assessment Billing - AILEEN-7 Assessment Tool: AILEEN-7 Assessment 58636 ([id number]) PHQ-9 - 07283 - PHQ-9 Billing: Yes ([id number]) Assessment & Plan Assessment & Plan (1) Iron deficiency anemia: Code(s): D50.9 - Iron deficiency anemia, unspecified Category: Medical Qualifiers: Iron deficiency anemia type: unspecified iron deficiency Qualified Code(s): D50.9 - Iron deficiency anemia, unspecified (2) Seasonal allergies: Code(s): J30.2 - Other seasonal allergic rhinitis Category: Medical (3) AILEEN (generalized anxiety disorder): Code(s): F41.1 - Generalized anxiety disorder Category: Medical (4) GERD with esophagitis: Code(s): K21.00 - Gastro-esophageal reflux disease with esophagitis, without bleeding Category: Medical Qualifiers: Esophagitis bleeding: without hemorrhage Qualified Code(s): K21.00 - Gastro-esophageal reflux disease with esophagitis, without bleeding (5) Mild intermittent asthma without complication: Code(s): J45.20 - Mild intermittent asthma, uncomplicated Category: Medical (6) Prediabetes: Code(s): R73.03 - Prediabetes Category: Medical (7) Body mass index [BMI] 39.0-39.9, adult: Code(s): Z68.39 - Body mass index [BMI] 39.0-39.9, adult Category: Medical (8) Severe obesity (BMI 35.0-39.9) with comorbidity: Code(s): E66.01 - Morbid (severe) obesity due to excess calories Category: Medical Plan . Orders: Orders Hemoglobin A1c 3 Months D50.9 - Iron deficiency anemia, unspecified, J30.2 - Other seasonal allergic rhinitis Complete Blood Count no Diff 3 Months D50.9 - Iron deficiency anemia, unspecified, J30.2 - Other seasonal allergic rhinitis Lipid Panel 3 Months D50.9 - Iron deficiency anemia, unspecified, J30.2 - Other seasonal allergic rhinitis Comprehensive Met. Panel 3 Months D50.9 - Iron deficiency anemia, unspecified, J30.2 - Other seasonal allergic rhinitis IRON PROFILE 3 Months D50.9 - Iron deficiency anemia, unspecified, J30.2 - Other seasonal allergic rhinitis Referrals Nurse Navigator Referral F41.1 - Generalized anxiety disorder Allergy & Immunology Referral J30.2 - Other seasonal allergic rhinitis Medications: New metformin ER 750 mg PO QPM 90 tabs 0RF Discontinued metformin ER Discontinued Reason: Doctor's Order 500 mg PO QPM 90 tabs 0RF
[2024-12-03 08:38] VITALS: BP 96/65; PULSE 58; RESP 12; TEMP 36.2; O2SAT 97; BMI 38.9
== END 2024-12-03 09:37 | disposition home or self-care (01) ==
LOC: HO.HMCFM 08:19
PROVIDERS: PCP Nurse Practitioner Family; Visit Provider Nurse Practitioner Family
DX: D50.9 Iron deficiency anemia, unspecified (principal); Z68.39 Body mass index [BMI] 39.0-39.9, adult; E66.01 Morbid (severe) obesity due to excess calories; J30.2 Other seasonal allergic rhinitis; F41.1 Generalized anxiety disorder; K21.00 Gastro-esophageal reflux disease with esophagitis, without bleeding; J45.20 Mild intermittent asthma, uncomplicated; R73.03 Prediabetes

== ENCOUNTER → 2024-12-03 08:19 | Outpatient (BNVA) | payer SELFPAY | PROVIDERS: PCP Nurse Practitioner Family; Visit Provider Nurse Practitioner Family | DX: D50.9 Iron deficiency anemia, unspecified (principal); J30.2 Other seasonal allergic rhinitis; F41.1 Generalized anxiety disorder; K21.00 Gastro-esophageal reflux disease with esophagitis, without bleeding; J45.20 Mild intermittent asthma, uncomplicated; R73.03 Prediabetes; E66.01 Morbid (severe) obesity due to excess calories; Z68.39 Body mass index [BMI] 39.0-39.9, adult; F39 Unspecified mood [affective] disorder; Z79.84 Long term (current) use of oral hypoglycemic drugs | CPT/HCPCS: 96127 ==

== ENCOUNTER 2025-02-28 09:02 | Outpatient (REF) | payer BC, SELFPAY ==
--- OUTSIDE RECORDS SUMMARY | 2025-02-28 09:25 | XMS_ITS | Patient Health Record ---
[facility] Address [address] [place] [address] Care Team Providers Care Oil Speculator Name Role Phone Gladis Thompson Primary Care Provider Unavailab kapadia Bev Will Unavailable [phone] Allergies Allergen (clinical drug ingredient) Drug/Non Drug Allergy documented on EMR Reaction Allergy Type Onset Date Status amoxicillin Amoxicillin Unknown Drug Allergy Act rosalia Results Component Value Reference Range Notes X ray : Foot, left 3V Reviewed date:08/29/2024 02:55:03 PM Interpretation:See Examination above Performing Lab: Notes/Report: See Examination above X ray : Foot, right 3V Reviewed date:08/29/2024 02:55:12 PM Interpretation:See Examination above Performing Lab: Notes/Report: See Examination above Reason For Referral No Information Medications Medication SIG (Take, Route, Frequency, Duration) Notes Start Date End Date Status Omeprazole Active Iron Active hydroCHLOROthiazide 12.5 MG TAKE 1 CAPSU LE BY MOUTH DAILY NEEDED FOR LEG SWEELING Oral for 90 Days Active metFORMIN HCl Active Albuterol Sulfate (2.5 MG/3M L) 0.083% TAKE 3 ML BY NEBULIZATION EVERY 6 HOURS NEEDED FOR WHEEZING OR SHORTNESS OF BREATH Inhalation for 5 Days Active Etonogestrel-Ethinyl Estradi ol 0.12-0.015 MG/24HR _insert 1 RING VAGINALLY FOR 3 WEEKS THEN 1 WEEK OFF EVERY MONTH Vaginal for 84 Days Active Voltaren 1 % as directed Externally 08/29/2024 Active Social History Tobacco Use: Social History Observation Description Date Details (start date - stop date) Never Smoker NA - NA Tobacco Use/Smoking Question Answer Notes Are you a: nonsmoker Additional Findings: Tobacco Non-User Current no n-smoker Alcohol Screen Question Answer Notes Did you have a drink containing alcohol in the p ast year? No Points 0 Interpretation Negative Tobacco use other than smoking: Question Answer Notes Are you an other tobacco user? No Vital Signs Blood pressure diastolic 80 mm Hg 12/02/2024 Height 5ft2in in 12/02/2024 Blood pressure systolic 120 mm Hg 12/02/2024 Weight 205 lbs 12/02/2024 BMI 37.49 kg/m2 12/02/2024 Encounters Encounter Location Date Provider Diagnosis [address] [address] 08/29/2024 Bev Black Pain in left foot M79.672 ; Pain in left ankle and joints of left foot M25.572 ; Bursitis of intermetatarsal bursa of left foot M77.52 ; Metatarsalgia, left foot M77.42 ; Right foot pain M79.671 ; Arthralgia of right foot M25.571 ; Bursitis of right foot M77.51 ; Left foot pain M79.672 ; Arthralgia of left foot M25.572 ; Bursitis of left foot M77.52 ; Peroneal tendinitis of right lower extremity M76.71 ; Peroneal tendinitis of left lower extremity M76.72 and Metatarsalgia of right foot M77.[address] [address] 12/02/2024 Bev Black Pain in left foot M79.672 ; Peroneal tendinitis of left lower extremity M76.72 ; Pain in left ankle and joints of left foot M25.572 ; Bursitis of intermetatarsal bursa of left foot M77.52 ; Metatarsalgia, left foot M77.42 ; Right foot pain M79.671 ; Arthralgia of right foot M25.571 ; Bursitis of right foot M77.51 ; Left foot pain M79.672 ; Arthralgia of left foot M25.572 ; Bursitis of left foot M77.52 ; Peroneal tendinitis of right lower extremity M76.71 and Metatarsalgia of right foot M77.41 [facility] [address] [address] 05/23/2024 Bev Will [facility] [address] [address] 06/24/2024 Bev Will [facility] [address] [address] 08/29/2024 Bev Will Assessments Encounter Date Diagnosis (ICD Code) Assessment Notes Treatment Notes Treatment Clinical Notes Section Notes 08/29/2024 Pain in left ankle and joints of left foot (ICD-10 - M25.572) 08/29/2024 Pain in left foot (ICD-10 - M79.672) 12/02/2024 Pain in left foot (ICD-10 - M79.672) 12/02/2024 Peroneal tendinitis of left lower extremity (ICD-10 - M76.72) 12/02/2024 Pain in left ankle and joints of left foot (ICD-10 - M25.572) 08/29/2024 Bursitis of intermetatarsal bursa of left foot (ICD-10 - M77.52) 08/29/2024 Metatarsalgia, left foot (ICD-10 - M77.42) 12/02/2024 Bursitis of intermetatarsal bursa of left foot (ICD-10 - M77.52) 12/02/2024 Metatarsalgia, left foot (ICD-10 - M77.42) 08/29/2024 Right foot pain (ICD-10 - M79.671) 08/29/2024 Arthralgia of right foot (ICD-10 - M25.571) 12/02/2024 Right foot pain (ICD-10 - M79.671) 12/02/2024 Arthralgia of right foot (ICD-10 - M25.571) 08/29/2024 Bursitis of right foot (ICD-10 - M77.51) 08/29/2024 Left foot pain (ICD-10 - M79.672) 12/02/2024 Bursitis of right foot (ICD-10 - M77.51) 12/02/2024 Left foot pain (ICD-10 - M79.672) 08/29/2024 Arthralgia of left foot (ICD-10 - M25.572) 08/29/2024 Bursitis of left foot (ICD-10 - M77.52) 12/02/2024 Arthralgia of left foot (ICD-10 - M25.572) 12/02/2024 Bursitis of left foot (ICD-10 - M77.52) 08/29/2024 Peroneal tendinitis of right lower extremity (ICD-10 - M76.71) 08/29/2024 Peroneal tendinitis of left lower extremity (ICD-10 - M76.72) 12/02/2024 Peroneal tendinitis of right lower extremity (ICD-10 - M76.71) Patient Educated with: PERONEAL TENDON INJURY REHAB. EXERCISES.pdf (PERONEAL TENDON INJURY REHAB. EXERCISES.pdf ) 08/29/2024 Metatarsalgia of right foot (ICD-10 - M77.41) 12/02/2024 Metatarsalgia of right foot (ICD-10 - M77.41) Plan Of Treatment No Information Insurance Providers Payer Name Payer Address Payer Phone Subscriber Number Group Number Insured Name Patient Relationship to Insured Coverage Start Date Coverage End Date [facility] [address] [place] [address] [id number] Rudy Garcia Self - patient is the insured Medical (General) History Medical History History ICD Code Anemia asthma Headaches/Migraines Reflux ( GERD) sinusitis
[2025-02-28 11:29] LABS: Hematocrit 43.3 % (37.0-47.0); Hemoglobin 14.1 g/dl (12.0-16.0); Mean Corpuscular HGB Conc 32.6 g/dl (31.0-35.0); Mean Corpuscular Volume 88.9 fL (80.0-98.0); Mean Platelet Volume 9.1 fL (9.4-12.3); Platelet Count 340 X10*3/uL (160-400); Red Blood Count 4.87 X10*6/uL (4.20-5.50); Red Cell Distribution Width 12.3 % (11.0-16.0); White Blood Count 6.9 X10*3/uL (4.8-10.8)
[2025-02-28 11:31] LABS: Estimated Average Glucose 137 mg/dL; Hemoglobin A1c % 6.4 % (<6.0)
[2025-02-28 13:20] LABS: Alanine Aminotransferase 14 U/L (0-31); Albumin Level 3.8 g/dL (3.5-5.0); Alkaline Phosphatase 75 U/L (39-117); Anion Gap 9 (12-20); Aspartate Amino Transferase 19 U/L (5-31); Bilirubin Total 0.3 mg/dL (0.0-1.0); Blood Urea Nitrogen 14 mg/dL (9-16); Calcium 8.9 mg/dL (8.4-10.2); Carbon Dioxide 26 mmol/L (22-29); Chloride 108 mmol/L (96-108); Cholesterol 150 mg/dL (<200); Estimated Glomerular Filt Rate > 60; Glucose Random 130 mg/dL (60-115); HDL Cholesterol 41 mg/dL (>40); Iron 70 mcg/dL (30-160); LDL Cholesterol Calculated 79 mg/dL (<100); Percent Iron Saturation 26 % (15-50); Potassium 4.3 mmol/L (3.3-5.1); Sodium 139 mmol/L (135-145); Total Iron Binding Capacity 268 mcg/dL (228-428); Total Protein 6.6 g/dL (6.5-8.0); Triglycerides 153 mg/dL (<150); Unsaturated Iron Binding 198 ug/dL
== END 2025-02-28 09:03 | disposition home or self-care (01) ==
LOC: HO.WFDLDS 09:02
PROVIDERS: Visit Provider Nurse Practitioner Family
DX: D50.9 Iron deficiency anemia, unspecified (principal); J30.2 Other seasonal allergic rhinitis
CPT/HCPCS: 36415; 80053; 80061; 83036; 83540; 85027

== ENCOUNTER 2025-03-06 08:48 | Outpatient (AMB) | payer BC, SELFPAY ==
--- NOTE | 2025-03-06 08:51 | A.OFFPC_ITS ---
Vital Signs 03/06/25 08:55 Height 5 ft 3 in Weight 220 lb BMI 39.0 BP 101/66 Blood Pressure Location Rt brachial Position Sitting Respiration 12 Pulse 66 Pulse Source Pulse Oximeter Temp 97.6 F Temp Source Oral Pulse Oximetry (%) 99 Oxygen Delivery Method Room Air Intake Visit Reasons: 3 Months/labs Intake Note: Follow up to review labs Clearance Center Manager Required: No Allergies amoxicillin Allergy (Severe, Verified 03/06/25 09:06) Itching Medication List - Last Reconciled 03/06/25 by Gladis Wiley, [facility]- albuterol sulfate 90 mcg/actuation 2 puffs inhalation Q4-6H PRN 30 days etonogestrel-ethinyl estradiol 0.12-0.015 mg/24 hr (NuvaRing) 1 vag ring vaginal Q4W levocetirizine 5 mg PO DAILY PRN metformin ER 750 mg PO QPM omeprazole 40 mg PO DAILY Tobacco use date assessed: 03/06/25 Dental Screening Dental Screen Date: 03/06/25 Did you have a dental visit in the last 12 months?: Yes Did you have a dental problem in the last 6 months where you did not have access to dental care?: No Was dental information given to patient?: Patient has dentist HPI HPI Comments History of Present Illness Details 34 y/o F with obesity, GERD, chronic low back pain, seasonal allergies, mild intermittent asthma, iron-deficiency anemia, prediabetes, AILEEN, family history of breast cancer, ovarian cysts, splenomegaly 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 Surgical hx: None Family hx: Dad , maternal grandmother with breast cancer, type 2 diabetes, heart disease , paternal grandmother with hypertension, stroke and cancer uncertain which kind, maternal aunt with breast cancer Health Maintenance: Pap pending appt, last one 2020 per records, normal Flu 07/11/24 Tdap due* Specialists: Podiatry Dr Will using insoles Chiropractor- no longer going ObGyn Dr Bravo first appt 10/2024 concern for PCOS Here today for routine of conditions GERD - controlled on PPI Asthma/Allergy: saw tuckpointer cleaner caulker; taking levocetrizine; was sick with sinusitis; recovered but cont w/ coughing and need for LACY. Saw relay dispatcher. Reports there was a concern for PCOS. No testing done. Prediabetes her A1c has increased, on metformin, tolerating w/o side effects, intermittent fasting. Iron-deficiency anemia is resolved with the use of iron once a day she was having no GI side effects she denies any overt bleeding Review of Systems - Constitutional: Reports feeling hungry frequently; denies recent weight change. - Endocrine: Denies symptoms of hypergly cemia such as excessive thirst or urination. - Respiratory: Reports recent episodes o f cough and associated asthma symptoms. - Gastrointestinal: Reports well-control led GERD on medication; denies current reflux episodes. - Hematological: Denies current symptoms of anemia; reports past history without recent exacerbations. - Allergic/Immunologic: Reports allergic reactions primarily triggered by pollen and animal dander. General: Well developed, well nourished, in no acute distress. Appears stated age. Head: Normocephalic, atraumatic. Eyes: PERRLA, Conjuntiva clear, scleras nonicteric TM: Intact and clear bilat Nose: turbinates pale and edematous, Ulcers noted inside bilat Mouth: There are no ulcers or lesions noted. No inflammation, no post nasal drip, no plaques nor exudates. Lungs: Faint exp wheeze JAVAN anteriorly that improved w/ deep breathing otherwise clear Abd: soft, nontender Heart: Regular rate and rhythm. No murmurs, click, rubs or gallops are noted. Extremities: No clubbing, cyanosis is noted. trace edema ble Psych: Normal eye contact, affect and mood appropriate, and normal interactions. Results 02/2025 - Labs: - Hemoglobin A1c: 6.4% - Random glucose: 130 mg/dL - Lipid profile: Total cholesterol 150 m g/dL, LDL 79 mg/dL, HDL 41 mg/dL, triglycerides 153 mg/dL - CBC: Stable with previously diagnosed anemia history - Electrolytes, renal function, calcium, iron profile, LFTs: Normal - Labs: - Hemoglobin A1c: 6.4% - Random glucose: 130 mg/dL - Lipid profile: Total cholesterol 150, LDL 79, HDL 41, triglycerides 153 - CBC stable, previous anemia in history - Normal electrolytes, renal function, c alcium, iron profile, LFTs Discussion Notes During the visit, I discussed the patient's current management for prediabetes, seasonal allergies, GERD, asthma, and the implications of her obesity status. For allergy management, I suggested using montelukast as an adjunct to levocetirizine, especially given her recent escalated coughing episodes. We discussed utilizing an allergy tracking corina for better environmental control and symptom anticipation. Additionally, we addressed the patient?s challenges with weight management and the possibility of incorporating bupropion to curb cravings, as well as increasing the metformin dosage to better manage blood glucose levels and potentially assist in weight loss. The option of a weight management referral was also discussed. I advised follow-up with her TELESALES AGENT regarding PCOS concerns and emphasized the importance of a comprehensive approach to managing her conditions. Follow-up laboratory testing and reassessment in three months were advised. 15 minutes spent Discussing different fo milan of medications to help with weight loss. Discouraged the use of GLP-1s due to the need to use lifelong, weight gain after discontinuation, cost and cancer risk. Educated about the use of Wellbutrin which can be used in patients without a seizure history. This medication works by blocking out the reward center related to mindless eating. It also has a mild stimulating effect. The side effect profile includes mild anxiety as well as a slight dizzy sensation. Another medication used is metformin, this is a diabetic medication. This medication has GI side effects. But can be very beneficial in aiding with weight loss in patients without diabetes. Topiramate was also discussed. This is a seizure medication with side effect profile that includes need to monitor LFTs as well as blood counts. One of the side effects is weight loss. Another medication, Phentermine is a stimulant/controlled substance. This is an anorexient that is used short-term medication used. =. Finally the use of a medication called Contrave, which is Wellbutrin + naltrexone can be used. The brand name is usually not cover therefore would have to prescribe the 2 medications individually. This medication works just as the Wellbutrin; naltrexone aides in further blocking of the reward center to aide in wt loss. After discussion of the above, the patient wishes to proceed with increasing metformin and adding wellbutrin. Assessment and Plan 1. Iron Deficiency Anemia: The patient's iron deficiency anemia is well managed with current supplementation, showing stable energy levels. Recommended to continue current regime allowing for further monitoring. 2. Prediabetes: Increased metformin dos age prescribed to enhance control. Advise adherence to current lifestyle modifying regime for further benefit. 3. Seasonal Allergic Rhinitis: Add monte lukast PRN, Continued Xyzal and environmental adjustments implemented to alleviate symptoms. - Recommend allergy tracker corina usage. 4. Edema: Resolved with orthotics and di etary adjustments, no additional interventions required. 5. Asthma: Mild controlled symptoms obse rved, advised appropriate albuterol use during nocturnal episodes. 6. Obesity - Increase metformin ER to 1000 mg. - add bupropion xl 150mg QAM for appetit e suppression. 7. Polycystic Ovary Syndrome (Suspected) : Referral to gynecology and managing through weight control protocols and enhanced metformin strategy. 8. GERD take PPI at HS Patient Instructions - Take increased dose of metformin as in structed. - Consider bupropion addition, discuss f urther if interested. - For allergies, add montelukast as need ed with current medication. - Use an allergy tracking corina for trigge rs. - Continue GERD and asthma medications a s prescribed. - Contact TELESALES AGENT about possible PCOS stephy luation. - Follow up in three months for lab test s. Consent Patient was informed and verbally consented to the use of an ambient scribe for clinic note documentation during this visit. Total time spent caring for the patient today was 44 minutes. This includes time spent before the visit reviewing the chart, time spent during the visit, and time spent after the visit on documentation, reviewing laboratory results, diagnostic imaging, medications, performing a medically necessary evaluation, counseling on diagnoses, care coordination, ordering appropriate tests, ordering appropriate medications, review of tests performed by other providers, reporting test results with the patient, communication with other healthcare providers. [facility] Medical History History of iron deficiency anemia Headache GERD (gastroesophageal reflux disease) Sinusitis Asthma Surgical History No pertinent past surgical history Family History Maternal Grandmother Diabetes Cardiovascular disease Paternal Grandmother Cardiovascular disease Paternal Grandfather Cardiovascular disease Social History Household Members: None Both parents involved: No Caregiver staying overnight: No Housing: Apartment Are you a primary animal caretaker supervisor to a significant other at home: No Do you presently have visiting nurse or other home services: No 75 years or older and lives alone: No Alcohol intake: current Alcohol intake frequency: holidays/special occasions only Patient Tobacco Use Status: Never used Tobacco e-Cigarette/Vaping Use: Never Used Second Hand Smoke Exposure: Yes service: No Current occupational status: employed 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 Cognitive needs: Yes (memory is a little bad) Hearing needs: No Vision needs: No Questionnaire Thrive Questionnaire Date Thrive assessed: 11/26/24 I am a: Patient What is your living situation today?: I have a steady place to live Within the past 12 months, did the food you bought not last and you didn't have the money to get more?: Never true Within the past 12 months, did you worry whether your food would run out before you got money to buy more?: Never true Do you have trouble paying for medicines?: No Do you have trouble getting transportation to medical appointments?: No Do you have trouble paying your heating and electricity bill?: No Do you have trouble taking care of your child, family member or friend?: No Do you have trouble with day-to-day activities such as bathing, preparing meals, shopping, managing finances, etc.?: No Are you currently unemployed and looking for a job?: No Are you interested in more education?: No Please select the resources that you would like help with: None Currently or been in a relationship where the following occur: No concerns reported THRIVE Score: 0 AILEEN-7 AMB Questionnaire AILEEN-7 Date AILEEN - 7 assessed: 12/03/24 Source: Developed by Drs. Manav Sales, Minerva Kramer, Yimi Emerson and colleagues, with an educational jermaine from [email or web address]. ACT Questionnaire In the past 4 weeks, how much of the time did your asthma keep you from getting as much done at work, school or at home?: A little of the time During the past 4 weeks, how often have you had shortness of breath?: 1-2 times a week During the past 4 weeks, how often did your asthma symptoms wake you up at night or earlier than usual in the morning?: Once a week During the past 4 weeks, how often have you had to use your rescue inhaler or nebulizer medication?: Once a week or less How would you rate your asthma control during the past 4 weeks?: Well controlled ACT Interpretation: Negative Score: 19 Physical exam (Primary Care) Vital Signs: Last Vital Signs Temp 97.6 F 03/06/25 08:55 Pulse 66 03/06/25 08:55 Resp 12 03/06/25 08:55 BP 101/66 03/06/25 08:55 Pulse Ox 99 03/06/25 08:55 Oxygen Delivery Method Room Air 03/06/25 08:55 BMI result Body Mass Index 39.0 BMI Assessment/Plan discussion: High BMI High, discussed plan: lifestyle Tobacco/Smoking Status: Tobacco use Status Tobacco use date assessed 03/06/25 03/06/25 08:56 Patient Tobacco Use Status Never used Tobacco 03/06/25 08:51 e-Cigarette/Vaping Use Never Used 03/06/25 08:51 Thrive Assessment: Date of Thrive Assessment Date Thrive assessed 11/26/24 03/06/25 08:51 Currently or been in a relationship where the following occur: No concerns reported Office Procedures Office Procedure Misc Details: G0449 15 MINUTE OBESITY EDUCATION Office Procedure Billing Code: AMB Procedure Billing Code Coding Level of Care Code Est Pt Level 5 (93555) Complex EM visit Add On G2211 Diagnoses Gastroesophageal reflux disease with esophagitis without hemorrhage K21.00 Esophagitis bleeding: without hemorrhage Iron deficiency anemia, unspecified iron deficiency anemia type D50.9 Iron deficiency anemia type: unspecified iron deficiency Mild intermittent asthma without complication J45.20 Body mass index [BMI] 39.0-39.9, adult Z68.39 Prediabetes R73.03 Seasonal allergies J30.2 CPT Codes Office Procedure - Office Procedure Billing Code: AMB Procedure Billing Code ([id number]) Additional Codes Asthma Control Questionnaire - ACT Interpretation: Negative ([id number]) Assessment & Plan Assessment & Plan (1) GERD with esophagitis: Comment: WELL CONTROLLED ON OMEPRAZOLE 40MG Code(s): K21.00 - Gastro-esophageal reflux disease with esophagitis, without bleeding Category: Medical Qualifiers: Esophagitis bleeding: without hemorrhage Qualified Code(s): K21.00 - Gastro-esophageal reflux disease with esophagitis, without bleeding (2) Iron deficiency anemia: Comment: WELL CONTROLLED Code(s): D50.9 - Iron deficiency anemia, unspecified Category: Medical Qualifiers: Iron deficiency anemia type: unspecified iron deficiency Qualified Code(s): D50.9 - Iron deficiency anemia, unspecified (3) Mild intermittent asthma without complication: Comment: EVALED ENT OF CT TOLD WELL CONTROLLED, OK TO CONT LACY PRN NO LACTOSE ALLERGY, PERHAPS SENSITIVE. Code(s): J45.20 - Mild intermittent asthma, uncomplicated Category: Medical (4) Body mass index [BMI] 39.0-39.9, adult: Code(s): Z68.39 - Body mass index [BMI] 39.0-39.9, adult Category: Medical (5) Prediabetes: Code(s): R73.03 - Prediabetes Category: Medical (6) Seasonal allergies: Comment: ALLERGY TESTING DONE ENT OF CT + ENVIRONMENTAL AND DOGS PLAN: STAY ON LEVOCETRIZINE Code(s): J30.2 - Other seasonal allergic rhinitis Category: Medical Plan . Orders: Orders Hemoglobin A1c 3 Months R73.03 - Prediabetes Comprehensive Met. Panel 3 Months R73.03 - Prediabetes Lipid Panel 3 Months R73.03 - Prediabetes Medications: New metformin ER 1,000 mg (2 x 500 mg) PO DAILY 180 tabs 1RF montelukast 10 mg PO BEDTIME 90 tabs 0RF bupropion HCl XL (Wellbutrin XL) 150 mg PO QAM 90 tabs 0RF Refilled levocetirizine 5 mg PO DAILY PRN 90 tabs 2RF allergy symptoms Discontinued metformin ER Discontinued Reason: Doctor's Order 750 mg PO QPM 90 tabs 0RF
[2025-03-06 08:55] VITALS: BP 101/66; PULSE 66; RESP 12; TEMP 36.4; O2SAT 99; BMI 39.0
--- OUTSIDE RECORDS SUMMARY | 2025-03-06 09:14 | XMS_ITS | Patient Health Record ---
[facility] Address [address] [place] [address] Care Team Providers Care Supply Cataloguer Name Role Phone Gladis Thompson Primary Care Provider Unavailab kapadia Bev Will Unavailable [phone] Allergies Allergen (clinical drug ingredient) Drug/Non Drug [...] 12/02/2024 Encounters Encounter Location Date Provider Diagnosis [address] [address] 08/29/2024 Bev Black Pain in left foot [...] M76.72 and Metatarsalgia of right foot M77.[address] [address] 12/02/2024 Bev Black Pain in left foot [...] M76.71 and Metatarsalgia of right foot M77.41 [facility] [address] [address] 05/23/2024 Bev Will [facility] [address] [address] 06/24/2024 Bev Will [facility] [address] [address] 08/29/2024 Bev Will Assessments Encounter Date Diagnosis [...] Insured Coverage Start Date Coverage End Date [facility] [address] [place] [address] [phone] [id number] Rudy Garcia Self - patient is the insured Medical (General) History Medical History History ICD Code Anemia asthma Headaches/Migraines Reflux ( GERD) sinusitis
== END 2025-03-06 09:39 | disposition home or self-care (01) ==
LOC: HO.HMCFM 08:49
PROVIDERS: PCP Nurse Practitioner Family; Visit Provider Nurse Practitioner Family
DX: K21.00 Gastro-esophageal reflux disease with esophagitis, without bleeding (principal); D50.9 Iron deficiency anemia, unspecified; J45.20 Mild intermittent asthma, uncomplicated; Z68.39 Body mass index [BMI] 39.0-39.9, adult; R73.03 Prediabetes; J30.2 Other seasonal allergic rhinitis

== ENCOUNTER → 2025-03-06 08:48 | Outpatient (BNVA) | payer BC, SELFPAY | PROVIDERS: PCP Nurse Practitioner Family; Visit Provider Nurse Practitioner Family | DX: K21.00 Gastro-esophageal reflux disease with esophagitis, without bleeding (principal); E66.9 Obesity, unspecified; M54.50 Low back pain, unspecified; G89.29 Other chronic pain; J30.2 Other seasonal allergic rhinitis; J45.20 Mild intermittent asthma, uncomplicated; F41.1 Generalized anxiety disorder; R73.03 Prediabetes; Z68.39 Body mass index [BMI] 39.0-39.9, adult | CPT/HCPCS: 96160 ==

== ENCOUNTER 2025-06-04 07:57 | Outpatient (REF) | payer BC, SELFPAY ==
[2025-06-04 12:50] LABS: Hemoglobin A1C 182.5265 umol/L; Total Hemoglobin (HGBA1C) 3646.1194 umol/L
[2025-06-04 12:55] LABS: Alanine Aminotransferase 12 U/L (0-31); Albumin Level 4.0 g/dL (3.5-5.0); Alkaline Phosphatase 62 U/L (39-117); Anion Gap 11 (12-20); Aspartate Amino Transferase 24 U/L (5-31); Blood Urea Nitrogen 14 mg/dL (9-16); Calcium 8.4 mg/dL (8.4-10.2); Carbon Dioxide 23 mmol/L (22-29); Chloride 110 mmol/L (96-108); Cholesterol 161 mg/dL (<200); Estimated Glomerular Filt Rate > 60; HDL Cholesterol 42 mg/dL (>40); Potassium 4.2 mmol/L (3.3-5.1); Sodium 140 mmol/L (135-145); Total Protein 6.4 g/dL (6.5-8.0); Triglycerides 166 mg/dL (<150)
== END 2025-06-04 07:58 | disposition home or self-care (01) ==
LOC: HO.WFDLDS 07:57
PROVIDERS: Visit Provider Nurse Practitioner Family
DX: Z13.6 Encounter for screening for cardiovascular disorders (principal); R73.03 Prediabetes
CPT/HCPCS: 36415; 80053; 80061; 83036

== ENCOUNTER 2025-06-11 08:15 | Outpatient (AMB) | payer BC, SELFPAY ==
--- NOTE | 2025-06-11 08:18 | A.OFFPC_ITS ---
Vital Signs 06/11/25 08:24 Height 5 ft 3 in Weight 215 lb 6 oz BMI 38.1 BP 124/70 Blood Pressure Location Rt brachial Position Sitting Respiration 12 Pulse 88 Pulse Source Pulse Oximeter Temp 97.3 F Temp Source Oral Pulse Oximetry (%) 98 Oxygen Delivery Method Room Air Intake Visit Reasons: LABS FU PREDM, ASTHMA, MED START WT LOSS Intake Note: Follow up to review labs and review med start. Roller Hand Required: No Allergies amoxicillin Allergy (Severe, Verified 06/11/25 08:48) Itching bupropion (From Wellbutrin) Adverse Reaction (Mild, Verified 06/11/25 08:48) DIARRHEA AND RASH Medication List - Last Reconciled 06/11/25 by Gladis Wiley, [facility]- albuterol sulfate 90 mcg/actuation 2 puffs inhalation Q4-6H PRN 30 days bupropion HCl XL (Wellbutrin XL) 150 mg PO QAM etonogestrel-ethinyl estradiol 0.12-0.015 mg/24 hr (NuvaRing) 1 vag ring vaginal Q4W inulin-vitamin D3 2,500 mg- 500 unit tabs PO levocetirizine 5 mg PO DAILY PRN metformin ER 1,000 mg (2 x 500 mg) PO DAILY montelukast 10 mg PO BEDTIME omeprazole 40 mg PO DAILY Tobacco use date assessed: 06/11/25 Dental Screening Dental Screen Date: 06/11/25 Did you have a dental visit in the last 12 months?: Yes Did you have a dental problem in the last 6 months where you did not have access to dental care?: No Was dental information given to patient?: Patient has dentist HPI HPI Comments History of Present Illness Details 35 y/o F with obesity, GERD, chronic low back pain, seasonal allergies, mild intermittent asthma, iron-deficiency anemia, prediabetes, AILEEN, family history of breast cancer, ovarian cysts, splenomegaly 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 Surgical hx: None Family hx: Dad , maternal grandmother with breast cancer, type 2 diabetes, heart disease , paternal grandmother with hypertension, stroke and cancer uncertain which kind, maternal aunt with breast cancer Health Maintenance: Pap pending appt, last one 2020 per records, normal Flu 07/11/24 Tdap admin today Specialists: Podiatry Dr Will using insoles Chiropractor- no longer going ObGyn Dr Bravo appt 10/2024 concern for PCOS Counseling History of Present Illness - The patient is a 35-year-old female pr esenting with follow-up on obesity, iron deficiency anemia, and prediabetes. - Obesity managed with metformin; allerg ic reaction to bupropion so stopped. - Iron deficiency anemia controlled with multivitamin. No GI side effects. - A1c elevation from 6.4 to 6.7, which i s peculiar in the setting of wt loss. - Intermittent fasting instituted; weigh t loss achieved. EAting 11a-230pm - Seasonal allergies and asthma managed with montelukast (has taken twice) and levocetirizine. PRN LACY - Current upper respiratory symptoms aft er travel. Sinus congestion, mild R ear pain. - GERD controlled on PPI. - Mood stable, in counseling, likes this . - Traveling to [place] to see family/zeinab paul. Review of Systems - General: Reports weight loss. - Endocrine: Reports increased A1c; bull es hypoglycemic events. - Respiratory: Reports wheezing; denies frequent inhaler use. - Gastrointestinal: Reports diarrhea rel ated to bupropion; episodes of vomiting with overeating. - Allergy/Immunology: Reports seasonal a llergy symptoms; allergic reaction to bupropion. - Hematologic: Denies issues related to iron supplementation. - Psychiatric: Reports engagement with t herapist. Exam: General: Well developed, well nourished, in no acute distress. Appears stated age. Head: Normocephalic, atraumatic. Eyes: PERRLA, Conjuntiva clear, scleras nonicteric TM: Intact and clear bilat, mild erythema on the R Nose: turbinates pale and edematous, sinus congestion w/o tenderness Mouth: There are no ulcers or lesions noted. No inflammation, no post nasal drip, no plaques nor exudates. Lungs: Clear throughout Heart: Regular rate and rhythm. No murmurs, click, rubs or gallops are noted. Extremities: No clubbing, cyanosis is noted. trace edema ble Psych: Normal eye contact, affect and mood appropriate, and normal interactions. Results - Labs: A1c increased to 6.7 from 6.4; e lectrolytes normal; low total protein attributed to fasting. See below Discussion Notes During the visit, I discussed with the patient the management strategies for obesity, prediabetes, and seasonal allergies. I explained the significance of the A1c increase and suggested ways to potentially lower it through dietary adjustments and increased metformin dosage. We reviewed the efficacy of montelukast and the sinus symptoms potentially linked to recent travel. Instructions on the importance of obtaining a Tdap vaccination were provided, along with guidance on sinus management, emphasizing the use of saline nasal rinses and considering Flonase or Ipratropium for congestion. I advised re- evaluation of labs in the coming months to track A1c levels before definitively diagnosing type 2 diabetes. Follow-up discussions were set for future lab evaluations and a physical examination. Patient was given time to ask questions. All questions were answered to their satisfaction. Assessment and Plan 1. Obesity - Increase metformin to 1500 mg daily. - Emphasize diet with high-fiber, low-pickett gar. 2. Prediabetes - Monitor A1c; increase metformin. 3. Iron deficiency anemia - Maintain iron supplementation. 4. Seasonal allergies and asthma - Continue levocetirizine and montelukas t (recommend to take QD, only taking PRN at this time) 5. Suspected Upper Respiratory Viral Ill ness - Use saline rinses and Flonase. - RTO in 10 days if no improvement or wo rsening. 6. Medication allergy to Bupropion - Document and avoid prescription. 7. GERD cont PPI 8. Mood cont counseling Patient Instructions - Take metformin as directed and increas e dosage to 1500 mg per day. - Continue your dietary approach, emphas izing fiber. - Use saline nasal rinses and Flonase fo r congestion. - Monitor symptoms. Contact if illness w kwaku in 10 days. - Receive Tdap vaccination during this v isit. - RTO Nov with labs for CPE, sooner PRN Consent Consent was obtained verbally for the administration of the Tdap vaccine during this visit. I explained the importance of pertussis prevention due to respiratory considerations, duration of vaccine efficacy (ten years), and expected post-vaccination soreness. Patient was informed and verbally consented to the use of an ambient scribe for clinic note documentation during this visit. Total time spent caring for the patient today was 42 minutes. This includes time spent before the visit reviewing the chart, time spent during the visit, and time spent after the visit on documentation, reviewing laboratory results, diag nostic imaging, medications, performing a medically necessary evaluation, counseling on diagnoses, care coordination, ordering appropriate tests, ordering appropriate medications, review of tests performed by other providers, reporting test results with the patient, communication with other healthcare providers. [facility] Medical History History of iron deficiency anemia Headache GERD (gastroesophageal reflux disease) Sinusitis Asthma Surgical History No pertinent past surgical history Family History Maternal Grandmother Diabetes Cardiovascular disease Paternal Grandmother Cardiovascular disease Paternal Grandfather Cardiovascular disease Social History (Reviewed 12/03/24 @ 08: by Marisol Tsang MA) Household Members: None Both parents involved: No Caregiver staying overnight: No Housing: Apartment Are you a primary medicare insurance specialist to a significant other at home: No Do you presently have visiting nurse or other home services: No 75 years or older and lives alone: No Alcohol intake: current Alcohol intake frequency: holidays/special occasions only Patient Tobacco Use Status: Never used Tobacco e-Cigarette/Vaping Use: Never Used Second Hand Smoke Exposure: Yes service: No Current occupational status: employed 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 1. Little interest or pleasure in doing things: not at all 2. Feeling down, depressed, or hopeless: not at all 3. Trouble falling or staying asleep, or sleeping too much: not at all 4. Feeling tired or having little energy: not at all 5. Poor appetite or overeating: not at all 6. Feeling bad about yourself - or that you are a failure or have let yourself or your family down: not at all 7. Trouble concentrating on things, such as reading the newspaper or watching television: not at all 8. Moving or speaking so slowly that other people could have noticed. Or the opposite - being so fidgety or restless that you have been moving around a lot more than usual: not at all 9. Thoughts that you would be better off or of hurting yourself in some way: not at all Total score: 0 Depression Screening Interpretation: Negative Depression Screening Done: Yes 35969 - PHQ-9 Billing: Yes Source: Developed by Drs. Manav Sales, Yimi Holbrook and colleagues, with an educational jermaine from [employer]. Thrive Questionnaire Date Thrive assessed: 06/11/25 I am a: Patient What is your living situation today?: I have a steady place to live Within the past 12 months, did the food you bought not last and you didn't have the money to get more?: Never true Within the past 12 months, did you worry whether your food would run out before you got money to buy more?: Never true Do you have trouble paying for medicines?: No Do you have trouble getting transportation to medical appointments?: No Do you have trouble paying your heating and electricity bill?: No Do you have trouble taking care of your child, family member or friend?: No Do you have trouble with day-to-day activities such as bathing, preparing meals, shopping, managing finances, etc.?: No Are you currently unemployed and looking for a job?: No Are you interested in more education?: No Please select the resources that you would like help with: None Currently or been in a relationship where the following occur: No concerns reported THRIVE Score: 0 AILEEN-7 AMB Questionnaire AILEEN-7 Date AILEEN - 7 assessed: 06/11/25 Feeling nervous, anxious, or on edge: 0 = Not at all Not being able to stop or control worryin = Not at all Worrying too much about different things: 0 = Not at all Trouble relaxin = Not at all Being so restless that it is hard to sit still: 0 = Not at all Becoming easily annoyed or irritable: 0 = Not at all Feeling afraid as if something awful might happen: 0 = Not at all Total AILEEN-7 score (0-4 normal; 5-9 mild; 10-14 moderate; 15-21 severe): 0 Source: Developed by Drs. Manav Sales, Minerva Kramer, Yimi Emerson and colleagues, with an educational jermaine from [employer]. AILEEN-7 Assessment Billing AILEEN-7 Assessment Tool: AILEEN-7 Assessment 42981 ACT Questionnaire In the past 4 weeks, how much of the time did your asthma keep you from getting as much done at work, school or at home?: None of the time During the past 4 weeks, how often have you had shortness of breath?: 1-2 times a week During the past 4 weeks, how often did your asthma symptoms wake you up at night or earlier than usual in the morning?: Not at all During the past 4 weeks, how often have you had to use your rescue inhaler or nebulizer medication?: Not at all How would you rate your asthma control during the past 4 weeks?: Completely controlled ACT Interpretation: Negative Score: 24 Physical exam (Primary Care) Vital Signs: Last Vital Signs Temp 97.3 F 06/11/25 08:24 Pulse 88 06/11/25 08:24 Resp 12 06/11/25 08:24 BP 124/70 06/11/25 08:24 Pulse Ox 98 06/11/25 08:24 Oxygen Delivery Method Room Air 06/11/25 08:24 BMI result Body Mass Index 38.1 BMI Assessment/Plan discussion: High BMI High, discussed plan: lifestyle Tobacco/Smoking Status: Tobacco use Status Tobacco use date assessed 06/11/25 06/11/25 08:21 Patient Tobacco Use Status Never used Tobacco 06/11/25 08:21 e-Cigarette/Vaping Use Never Used 06/11/25 08:21 PHQ-9: PHQ-9 Score PHQ-9: Total score 0 06/11/25 15:49 Depression Screening Interpretation: Negative Thrive Assessment: Date of Thrive Assessment Date Thrive assessed 06/11/25 06/11/25 08:21 Currently or been in a relationship where the following occur: No concerns reported Immunizations Boostrix Tdap 2.5 Lf unit-8 mcg-5 Lf/0.5 mL intramuscular syringe Performing Provider: KAYDEN Joseph Performing Location: [facility] [place] Family Medicine Administered by: Marisol Tsang MA on 06/11/25 09:11 Dose Route Admin Location Dispensed Lot Number Expiration Date [facility] Manipulative Therapy Specialist 0.5 mL IM Right Deltoid 0.5 mL [id number] 07/30/27 21066-456-21 [facility] Total Dispensed Waste 0.5 mL 0 % VIS Given Date VIS Provided VIS Publication Date 06/11/25 Single Vaccine 21 Eligibility Eligibility Date Funding Source Not [facility] Eligible 06/11/25 Private Results Reviewed Results Reviewed: Laboratory 06/04/25 Result Units Range Interpretation Provider Comments Sodium Level 140 mmol/L (135-145) Potassium Level 4.2 mmol/L (3.3-5.1) Chloride Level 110 mmol/L (96-108) High Carbon Dioxide Level 23 mmol/L (22-29) Anion Gap 11 (12-20) Low Blood Urea Nitrogen 14 mg/dL (9-16) Creatinine 0.75 mg/dL (0.5-1.4) Estimated Creatinine Clearance Calc Not Reportable Estimat Glomerular Filtration Rate > 60 Random Glucose 130 mg/dL (60-115) High Estimated Average Glucose 146 mg/dL Hemoglobin A1c Percent 6.7 % (<6.0) High Calcium Level 8.4 mg/dL (8.4-10.2) Total Bilirubin 0.3 mg/dL (0.0-1.0) Aspartate Amino Transf (AST/SGOT) 24 U/L (5-31) Alanine Aminotransferase (ALT/SGPT) 12 U/L (0-31) Alkaline Phosphatase 62 U/L (39-117) Total Protein 6.4 g/dL (6.5-8.0) Low Albumin 4.0 g/dL (3.5-5.0) Triglycerides Level 166 mg/dL (<150) High Cholesterol Level 161 mg/dL (<200) LDL Cholesterol, Calculated 86 mg/dL (<100) HDL Cholesterol 42 mg/dL (>40) Coding Level of Care Code Est Pt Level 5 (82823) Complex EM visit Add On G2211 Diagnoses Need for Tdap vaccination Z23 Severe obesity (BMI 35.0-39.9) with comorbidity E66.01 Gastroesophageal reflux disease with esophagitis without hemorrhage K21.00 Esophagitis bleeding: without hemorrhage Prediabetes R73.03 AILEEN (generalized anxiety disorder) F41.1 Seasonal allergies J30.2 Iron deficiency anemia, unspecified iron deficiency anemia type D50.9 Iron deficiency anemia type: unspecified iron deficiency Mild intermittent asthma without complication J45.20 Body mass index [BMI] 39.0-39.9, adult Z68.39 Additional Codes Asthma Control Questionnaire - ACT Interpretation: Negative ([id number]) AILEEN-7 Assessment Billing - AILEEN-7 Assessment Tool: AILEEN-7 Assessment 95147 ([id number]) PHQ-9 - 91733 - PHQ-9 Billing: Yes ([id number]) Assessment & Plan Assessment & Plan (1) Need for Tdap vaccination: Code(s): Z23 - Encounter for immunization Category: Medical (2) Severe obesity (BMI 35.0-39.9) with comorbidity: Code(s): E66.01 - Morbid (severe) obesity due to excess calories Category: Medical (3) GERD with esophagitis: Comment: WELL CONTROLLED ON OMEPRAZOLE 40MG Code(s): K21.00 - Gastro-esophageal reflux disease with esophagitis, without bleeding Category: Medical Qualifiers: Esophagitis bleeding: without hemorrhage Qualified Code(s): K21.00 - Gastro-esophageal reflux disease with esophagitis, without bleeding (4) Prediabetes: Code(s): R73.03 - Prediabetes Category: Medical (5) AILEEN (generalized anxiety disorder): Code(s): F41.1 - Generalized anxiety disorder Category: Medical (6) Seasonal allergies: Comment: ALLERGY TESTING DONE ENT OF CT + ENVIRONMENTAL AND DOGS PLAN: STAY ON LEVOCETRIZINE Code(s): J30.2 - Other seasonal allergic rhinitis Category: Medical (7) Iron deficiency anemia: Comment: WELL CONTROLLED Code(s): D50.9 - Iron deficiency anemia, unspecified Category: Medical Qualifiers: Iron deficiency anemia type: unspecified iron deficiency Qualified Code(s): D50.9 - Iron deficiency anemia, unspecified (8) Mild intermittent asthma without complication: Comment: EVALED ENT OF CT TOLD WELL CONTROLLED, OK TO CONT LACY PRN NO LACTOSE ALLERGY, PERHAPS SENSITIVE. Code(s): J45.20 - Mild intermittent asthma, uncomplicated Category: Medical (9) Body mass index [BMI] 39.0-39.9, adult: Code(s): Z68.39 - Body mass index [BMI] 39.0-39.9, adult Category: Medical Plan . Orders: Orders Complete Blood Count no Diff 07/26/25 Z00.00 - Encounter for general adult medical examination without abnormal findings Comprehensive Met. Panel 07/26/25 Z00. - Encounter for general adult medical examination without abnormal findings Vitamin B12 and Folate 07/26/25 Z00.00 - Encounter for general adult medical examination without abnormal findings Hemoglobin A1c 07/26/25 Z00. - Encounter for general adult medical examination without abnormal findings Lipid Panel 07/26/25 Z00. - Encounter for general adult medical examination without abnormal findings Microalbumin, Random (w Creat) 07/26/25 Z. - Encounter for general adult medical examination without abnormal findings TSH reflex Free T4 07/26/25 Z. - Encounter for general adult medical examination without abnormal findings Vitamin D 25-OH Total 07/26/25 Z00. - Encounter for general adult medical examination without abnormal findings TDaP Immunization Today Z23 - Encounter for immunization Medications: New ipratropium bromide administer into each nostril 2 sprays intranasal BID 30 mL 1RF Changed From metformin ER 1,000 mg (2 x 500 mg) PO DAILY 180 tabs 1RF To metformin ER 1,500 mg (3 x 500 mg) PO DAILY 270 tabs 1RF Discontinued bupropion HCl XL (Wellbutrin XL) Discontinued Reason: Patient no longer taking 150 mg PO QAM 90 tabs 0RF
[2025-06-11 08:24] VITALS: BP 124/70; PULSE 88; RESP 12; TEMP 36.3; O2SAT 98; BMI 38.1
--- OUTSIDE RECORDS SUMMARY | 2025-06-11 09:11 | XMS_ITS ---
Author Name [facility] Organization Unknown History of Medication Use Medication Directions Dispensed Refills Start Date End Date Stat us etonogestrel-ethinyl estradiol (NUVARING) 0.12-0.015 MG/24HR vaginal ring INSERT 1 RING VAGINALLY EVERY [address] FOR 3 WEEKS OF A 4 WEEK CYCLE. NEED INSURANCE 12/27/2024 active levocetirizine (XYZAL) 5 MG tablet TAKE 1 TABLET ORALLY DAILY NEEDED FOR ALLERGY SYMPTOMS 12/25/2024 active metFORMIN (GLUCOPHAGE-XR) 750 MG 24 hr tablet TAKE 1 TABLET EVERY EVENING DIRECTED 12/03/2024 active ferrous sulfate 325 (65 FE) MG tablet Take 325 mg by mouth daily. Take 2 hours before or 4 hours after acid reducers. active Problems Problem Status Onset Date Problem Type Date of Resoluti on Source Mild intermittent asthma without complication active EncounterDiagnosisAct [facility] Food allergy active EncounterDiagnosisAct [facility] Allergic rhinitis due to animal hair and dander active EncounterDiagnosisAct [facility] Chronic allergic rhinitis due to pollen active EncounterDiagnosisAct [facility] Encounters Encounter Type Encounter Reason Primary Diagnosis Location Date Ambulatory [facility] 01/21/2025 Care Team Organization Name Specialty Phone Email Start Date End [facility] 04/24/2025 [facility] 01/22/2025 02/20/2025 [facility] 12/19/2024 [facility] 12/19/2024
--- OUTSIDE RECORDS SUMMARY | 2025-06-11 09:11 | XMS_ITS | Patient Health Record ---
Author Organization [employer] [facility] Address [address] [place] [address] Care Team Providers Care Summons Server Name Role Phone [facility]CHOA N[facility] Primary Care Provider Unav Yasmine Weiner Unavailable [phone] Allergies Allergen (clinical drug ingredient) Drug/Non Drug Allergy documented on EMR Reaction Allergy Type Onset Date Status amoxicillin Amoxicillin Itching Drug Allergy Act rosalia Results Component Value Reference Range Notes PDF Report Reviewed date:11/04/2024 02:32:42 PM Interpretation: Performing Lab:[facility] Melend[facility], [address], [address], [place], Phone - [phone], Director - [facility] Notes/Report: Clinical Information:Vaginal/Cervical, LMP: 09/30 [id number] LMP / Prev Treat...[id number] Dates / Results....2022 Elsewhere No. of containers..01 ThinPrep Vial [id number] IGP No Culture 30 Plus Reviewed date:11/04/2024 02:32:56 PM Interpretation: Performing Lab:Luciano Melendrez, [address], [address], [place], Phone - [phone], [facility] - [facility] Notes/Report: Clinical Information:Vaginal/Cervical, LMP: 09/30 [id number] LMP / Prev Treat...[id number] Dates / Results....2022 Elsewhere No. of containers..01 ThinPrep Vial DIAGNOSIS: NEGATIVE FOR IN TRAEPITHELIAL LESION OR MALIGNANCY. Specimen adequacy: Satisfactory for evaluation. Endocervical and/or squamous metaplastic cells (endocervical component) are present. Areas of partially obscuring inflammatory exudate are present. Clinician provided ICD10: Z0 1.419 Performed by: Dena hall, Career Advisor (ASCP) . . Note: The Pap smear is a screening test designed to aid in the detection of premalignant and malignant conditions of the uterine cervix. It is not a diagnostic procedure and should not be used as the sole means of detecting cervical cancer. Both false-positive and false-negative reports do occur. . Test Methodology: This liquid based ThinPrep(R) pap test was screened with the use of an image guided system. HPV Aptima Negative Negative This nucleic acid amplification test detects fourteen high-risk HPV types (16,18,31,33,35,39,45,51,52,56,58 ,59,66,68) without differentiation. HPV Genotype Reflex Criteria not met, HPV Genotype not performed. Urinalysis Reviewed date:10/30/2024 09:58:56 AM Interpretation: Performing Lab: Notes/Report: PH 5.0 PROTEIN Neg GLUCOSE Neg BLOOD Neg Reason For Referral No Information Medications Medication SIG (Take, Route, Frequency, Duration) Notes Start Date End Date Status Iron Active metFORMIN HCl ER 500 MG TAKE 1 TABLET BY MOUTH IN THE EVENING Oral; Duration: 90 Days Active NuvaRing 0.12-0.015 MG/24HR [address] for 3 weeks, remove, and replace with a new ring after 7 day break Vaginal; Duration: 28 day(s) 10/30/2024 Active Omeprazole 40 MG TAKE 1 CAPSULE BY [facility] EVERY DAY Oral; Duration: 90 Days Active Levocetirizine Dihydrochloride 5 MG TAKE 1 TABLET ORALLY DAILY NEEDED FOR ALLERGY SYMPTOMS Oral; Duration: 90 Days Active Albuterol Sulfate HFA 108 (9 0 Base) MCG/ACT INHALE 2 PUFFS BY MOUTH EVERY 4 TO 6 HOURS NEEDED FOR SHORTNESS OF BREATH OR WHEEZING FOR 30 DAYS Inhalation; Duration: 30 Days Active Social History Tobacco Use: Social History Observation Description Date Details (start date - stop date) Never Smoker NA - NA Sexual History Question Answer Notes Had sex in the past 12 months (vaginal, oral, or anal)? No Tobacco Control (Standard) Question Answer Notes Tobacco use: Nonsmoker Problems Problem Type SNOMED Code ICD Code Onset Dates Problem Status W/U Status Risk Notes Problem Hyperprolactinemia (434252866) Hyperprolactinemia (E22.1) Active confirmed Problem Morbid obesity (disorder) (857349788) Morbid (severe) obesity due to excess calories (E66.01) Active confirmed Problem Polycystic ovary syndrome (disorder) (753767583) Polycystic ovarian syndrome (E28.2) Active confirmed Vital Signs Temperature 97.9 degrees Fahrenheit 10/30/2024 Blood pressure diastolic 74 mm Hg 10/30/2024 Height 62 in 10/30/2024 Blood pressure systolic 108 mm Hg 10/30/2024 Weight 216 lbs 10/30/2024 BMI 39.5 kg/m2 10/30/2024 Encounters Encounter Location Date Provider Diagnosis [address] [place] [address] 10/30/2024 Yasmine Bravo Encounter for surveillance of contraceptives, unspecified Z30.40 ; Polycystic ovarian syndrome E28.2 ; Encounter for gynecological examination (general) (routine) without abnormal findings Z01.419 ; Hyperprolactinemia E22.1 and Morbid (severe) obesity due to excess calories E66.01 Assessments Encounter Date Diagnosis (ICD Code) Assessment Notes Treatment Notes Treatment Clinical Notes Section Notes 10/30/2024 Encounter for surveillance of contraceptives, unspecified (ICD-10 - Z30.40) CONTINUE NUVARING 10/30/2024 Polycystic ovarian syndrome (ICD-10 - E28.2) DISCUSSED HER MENSTURAL HX AND WEIGHT GAIN AT AGE 16. HIGHLY SUSPECT PCO. MAY D/C NUVARING FOR A MONTH AND CHECK HORMONE LEVELS TO CONFIRM DX. WILL DO SO IF NEEDED. PELVIC ULTRASOUND WILL BE ORDERED. 10/30/2024 Encounter for gynecological examination (general) (routine) without abnormal findings (ICD-10 - Z01.419) PAP TEST WITH HPV TYPING WAS OBTAINED. 10/30/2024 Hyperprolactinemia (ICD-10 - E22.1) DISCUSSED POSSIBLE HX OF HYPERPROLACTIN EMIA, OBTAIN RECORDS. IF HIGH PROLACTIN IS VERIFIED, WILL D/C NUVARING AND WILL OBTAINE HORMONAL EVALUATION. DISCUSSED THIS WITH THE PAT. IF ELEVATED PROLACTIN IS VERIFIED, WILL REFER TO ENDOCRINOLOGIS T. SHE MAY NEED BRAIN MRI TO CHECK HER PITUITARY. 10/30/2024 Morbid (severe) obesity due to excess calories (ICD-10 - E66.01) DISCUSSED OBESITY AND ITS NEGATIVE EFFECTS ON HER HEALTH. Plan Of Treatment Next Appt Details Provider Name:Yasmine chaudhari, 11/05/2025 08:20:00 AM, [address] [facility], [address], [place], [address], Insurance Providers Payer Name Payer Address Payer Phone Subscriber Number Group Number Insured Name Patient Relationship to Insured Coverage Start Date Coverage End Date [employer] [place] [address] [place] [address] [phone] [id number] GABBI THORNTON Self - patient is the insured Medical (General) History Medical History History ICD Code Other asthma J45.998
--- OUTSIDE RECORDS SUMMARY | 2025-06-11 09:11 | XMS_ITS | Clinical Summary ---
Author Organization [facility] Address [address] [place] [address] Care Team Providers Care Subacute Nurse Name Role Phone Gladis Wiley APRN Primary Care Provider + Allergies No known active allergies Medications levocetirizine (XYZAL) 5 MG tablet TAKE 1 TABLET ORALLY DAILY NEEDED FOR ALLERGY SYMPTOMS 5 Active metFORMIN (GLUCOPHAGE-XR) 750 MG 24 hr tablet TAKE 1 TABLET EVERY EVENING DIRECTED 5 Active etonogestrel-et hinyl estradiol (NUVARING) 0.12-0.015 MG/24HR vaginal ring INSERT 1 RING VAGINALLY EVERY [address] FOR 3 WEEKS OF A 4 WEEK CYCLE. NEED INSURANCE 5 Active ferrous sulfate 325 (65 FE) MG tablet Take 325 mg by mouth daily. Take 2 hours before or 4 hours after acid reducers. Active Social History Tobacco Use Types Packs/Day Years Used Date Smoking Tobacco: Never Smokeless Tobacco: Never Tobacco Cessation:Counseling Given: Not Answered Comments Unknown Sex and Gender Information Value Date Recorded Sex Assigned at Not on file Legal Sex Female 12:48 PM EDT Gender Identity Not on file Sexual Orientation Not on file Last Filed Vital Signs Vital Sign Reading Time Taken Comments Blood Pressure - - Pulse - - Temperature - - Respiratory Rate - - Oxygen Saturation - - Inhaled Oxygen Concentration - - Weight 95.3 kg (210 lb) 01/21/2025 3:52 PM EDT Height 157.5 cm (5' 2 ) 01/21/2025 3:52 PM EDT Body Mass Index 38.41 01/21/2025 3:52 PM EDT Plan of Treatment Health Maintenance Due Date Last Done Comments Hepatitis C Virus Screening 1991 HIV Screening 2004 DTaP/Tdap/Td Vaccines (1 - Tdap) 2010 Hepatitis B Vaccines (1 of 3 - 19+ 3-dose series) 2010 Pap Smear (Ages 21-65) 2012 HPV Vaccines (1 - 3-dose SCD M series) 2018 Influenza Vaccine 04/25/2025 COVID-19 Vaccine (1 - 2023-2 5 season) 2025 Pneumococcal Vaccine: Pediat matt (0-5 Years) and At-Risk Patients (6 to 49 Years) Aged Out No longer eligible b ased on patient's age to complete this topic Insurance PPO Care Teams Subacute Nurse Relationship Specialty Start Date End Date Gladis Wiley APRN [address] [place] [id number] PCP - General Family Medicine 12/19/24
--- OUTSIDE RECORDS SUMMARY | 2025-06-11 09:11 | XMS_ITS | Patient Health Record ---
[facility] [place] Address [address] [place] [address] Care Team Providers Care Obstetrician Name Role Phone Gladis Thompson Primary Care Provider Unavailab kapadia Bev Will Unavailable [phone] Allergies Allergen (clinical drug ingredient) Drug/Non Drug [...] BY MOUTH DAILY NEEDED FOR LEG SWEELING Oral; Duration: 90 Days Active metFORMIN HCl Active Albuterol Sulfate (2.5 MG/3M L) 0.083% TAKE 3 ML BY NEBULIZATION EVERY 6 HOURS NEEDED FOR WHEEZING OR SHORTNESS OF BREATH Inhalation; Duration: 5 Days Active Etonogestrel-Ethinyl Estradi ol 0.12-0.015 MG/24HR _insert 1 RING VAGINALLY FOR 3 WEEKS THEN 1 WEEK OFF EVERY MONTH Vaginal; Duration: 84 Days Active Voltaren 1 % as [...] 12/02/2024 Encounters Encounter Location Date Provider Diagnosis [address] [address] 08/29/2024 Bev Black Pain in left foot [...] M76.72 and Metatarsalgia of right foot M77.[address] [address] 12/02/2024 Bev Black Pain in left foot [...] M76.71 and Metatarsalgia of right foot M77.41 [facility] [address] [place] [address] 06/24/2024 Bev Will [facility] [address] [address] 08/29/2024 Bev Will [facility] [address] [address] 03/17/2025 Bev Will Assessments Encounter Date Diagnosis (ICD [...] Insured Coverage Start Date Coverage End Date [facility] [address] [place] [address] [phone] [id number] Odalys Garcia Self - patient is the insured Medical (General) History Medical History History ICD Code Anemia asthma Headaches/Migraines Reflux ( GERD) sinusitis
== END 2025-06-11 09:12 | disposition home or self-care (01) ==
LOC: HO.HMCFM 08:16
PROVIDERS: PCP Nurse Practitioner Family; Visit Provider Nurse Practitioner Family
DX: Z23 Encounter for immunization (principal); E66.01 Morbid (severe) obesity due to excess calories; K21.00 Gastro-esophageal reflux disease with esophagitis, without bleeding; R73.03 Prediabetes; F41.1 Generalized anxiety disorder; J30.2 Other seasonal allergic rhinitis; D50.9 Iron deficiency anemia, unspecified; J45.20 Mild intermittent asthma, uncomplicated; Z68.39 Body mass index [BMI] 39.0-39.9, adult

== ENCOUNTER → 2025-06-11 08:15 | Outpatient (BNVA) | payer BC, SELFPAY | PROVIDERS: PCP Nurse Practitioner Family; Visit Provider Nurse Practitioner Family | DX: E66.01 Morbid (severe) obesity due to excess calories (principal); D50.9 Iron deficiency anemia, unspecified; K21.9 Gastro-esophageal reflux disease without esophagitis; R73.03 Prediabetes; J45.909 Unspecified asthma, uncomplicated; K21.00 Gastro-esophageal reflux disease with esophagitis, without bleeding; F41.1 Generalized anxiety disorder; J45.20 Mild intermittent asthma, uncomplicated; Z23 Encounter for immunization; Z68.39 Body mass index [BMI] 39.0-39.9, adult | CPT/HCPCS: 90471; 90715; 96127; 96160 ==

== ENCOUNTER 2025-08-25 09:28 | Outpatient (REF) | payer BC, SELFPAY ==
--- OUTSIDE RECORDS SUMMARY | 2025-08-25 11:12 | XMS_ITS | Clinical Summary ---
Author Organization [facility] Address [address] [place] [address] Care Team Providers Care Historical Records Administrator Name Role Phone Gladis Wiley APRN Primary [...] series) 2010 Pap Smear (Ages 21-65) 2012 Influenza Vaccine 04/25/2025 COVID-19 Vaccine (1 - 2023-2 5 season) 2025 HPV Vaccines (No Doses Required) Completed Pneumococcal Vaccine: Pediat matt (0-5 Years) and At-Risk Patients (6 to 49 Years) Aged Out No longer eligible b ased on patient's age to complete this topic Insurance [facility] PPO Care Teams Historical Records Administrator Relationship Specialty Start Date End Date Gladis Wiley APRN [address] [place] [address] PCP - General Family Medicine 12/19/24
[2025-08-25 11:40] LABS: Hematocrit 43.8 % (37.0-47.0); Hemoglobin 14.6 g/dl (12.0-16.0); Mean Corpuscular HGB Conc 33.3 g/dl (31.0-35.0); Mean Corpuscular Hemoglobin 29.6 pg (27.0-33.0); Mean Corpuscular Volume 88.7 fL (80.0-98.0); NRBC Abs Auto 0.000 X10*3/uL (0.0-0.012); NRBC Pct Auto 0.0 /100WBC (0.0-0.2); Platelet Count 315 X10*3/uL (160-400); Red Blood Count 4.94 X10*6/uL (4.20-5.50); White Blood Count 6.3 X10*3/uL (4.8-10.8)
[2025-08-25 12:00] LABS: Microalbum/Creatinine Ratio Ur 5.0 ug/mg cr (<30)
[2025-08-25 12:21] LABS: Alanine Aminotransferase 11 U/L (0-31); Albumin Level 4.3 g/dL (3.5-5.0); Alkaline Phosphatase 72 U/L (39-117); Anion Gap 12 (12-20); Aspartate Amino Transferase 17 U/L (5-31); Blood Urea Nitrogen 11 mg/dL (9-16); Calcium 9.2 mg/dL (8.4-10.2); Carbon Dioxide 24 mmol/L (22-29); Chloride 109 mmol/L (96-108); Cholesterol 171 mg/dL (<200); Estimated Glomerular Filt Rate > 60; HDL Cholesterol 47 mg/dL (>40); Potassium 4.0 mmol/L (3.3-5.1); Sodium 141 mmol/L (135-145); Total Protein 7.0 g/dL (6.5-8.0); Triglycerides 162 mg/dL (<150)
[2025-08-25 12:44] LABS: Folate 9.6 ng/mL (> or = 4.0); Vitamin B12 316 pg/mL (200-900)
== END 2025-08-25 09:29 | disposition home or self-care (01) ==
LOC: HO.WFDLDS 09:28
PROVIDERS: Visit Provider Nurse Practitioner Family
DX: Z00.00 Encounter for general adult medical examination without abnormal findings (principal); Z13.1 Encounter for screening for diabetes mellitus; Z13.29 Encounter for screening for other suspected endocrine disorder; Z13.21 Encounter for screening for nutritional disorder; Z13.6 Encounter for screening for cardiovascular disorders
CPT/HCPCS: 36415; 80053; 80061; 82043; 82306; 82570; 82607; 82746; 83036; 84443; 85027

== ENCOUNTER 2025-09-01 14:48 | Outpatient (AMB) | payer BC, SELFPAY ==
--- NOTE | 2025-09-01 14:52 | A.OFFPC_ITS ---
Vital Signs 09/01/25 14:57 Height 5 ft 3 in Weight 207 lb 4 oz BMI 36.7 BP 104/66 Blood Pressure Location Lt brachial Position Sitting Respiration 12 Pulse 72 Pulse Source Pulse Oximeter Temp 97.2 F Temp Source Oral Pulse Oximetry (%) 99 Oxygen Delivery Method Room Air Intake Visit Reasons: end of Nov CPE labs 1 week before Intake Note: CPE. 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 Required: No Allergies amoxicillin Allergy (Severe, Verified 09/01/25 14:53) Itching bupropion (From Wellbutrin) Adverse Reaction (Mild, Verified 09/01/25 14:53) DIARRHEA AND RASH Medication List - Last Reconciled 09/01/25 by Gladis Wiley, DIRECTOR OF PHYSICAL THERAPY- albuterol sulfate 90 mcg/actuation 2 puffs inhalation Q4-6H PRN 30 days etonogestrel-ethinyl estradiol 0.12-0.015 mg/24 hr (NuvaRing) 1 vag ring vaginal Q4W inulin-vitamin D3 2,500 mg- 500 unit tabs PO ipratropium bromide 2 sprays intranasal BID levocetirizine 5 mg PO DAILY PRN metformin ER 1,500 mg (3 x 500 mg) PO DAILY montelukast 10 mg PO BEDTIME omeprazole 40 mg PO DAILY Tobacco use date assessed: 09/01/25 Dental Screening Dental Screen Date: 09/01/25 Did you have a dental visit in the last 12 months?: Yes Did you have a dental problem in the last 6 months where you did not have access to dental care?: No Was dental information given to patient?: Patient has dentist HPI HPI Comments History of Present Illness Details 35 y/o F with obesity, GERD, chronic low back pain, seasonal allergies, mild intermittent asthma, iron-deficiency anemia, prediabetes, AILEEN, family history of breast cancer, ovarian cysts, splenomegaly 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 Surgical hx: None Family hx: Dad , maternal grandmother with breast cancer, type 2 diabetes, heart disease , paternal grandmother with hypertension, stroke and cancer uncertain which kind, maternal aunt with breast cancer, maternal aunt w/ OCD Health Maintenance: Pap pending appt, last one 2020 per records, normal Flu 2024/2025 @ [facility] Tdap 2024 Specialists: Podiatry Dr Will using insoles Chiropractor- no longer going ObGyn Dr Bravo 11/05/2025 Counseling Optho wears glasses last exam a few months ago History of Present Illness The patient is a 35 year old female presenting for a CPE, medication refills, and evaluation of left-sided symptoms including a recent episode of vision loss. Obesity: - The patient has a history of obesity w ith a BMI of 36.7. Intentional wt loss! - She has recently started exercising Smartzer. Pre-diabetes: - The patient has a history of pre-diabe bobo. - Her HbA1c was previously 6.7% and 6.4% in February. - She is taking Metformin 1500 mg daily Fatigue and Cognitive Symptoms: - The patient reports feeling tired, sle epy, and experiencing brain fog with difficulty focusing at work. - She also reports difficulty thinking o f words. - Symptoms seemed to start in the spring and summer and may have a seasonal component. - She also notes her nails are peeling a t the tips, which she was told may be related to her symptoms. - Her vitamin B12 was on the low end of normal in the 300s, and she is suppl ementing with B complex or vitamin B and vitamin D3. Visual disturbance: - The patient experienced an episode of peripheral vision loss in the bottom half of her left eye, which appeared wavy, at the end of July 13, 2025. - Following the event, she was seen for an emergency ophthalmology appointment a day later, where retinal detachment was ruled out and the exam was found to be fine. - It was suggested that the episode coul d have been related to a migraine or stress, though she has no prior history of migraines. - She reports increased sensitivity to l ight in her left eye, particularly when driving at night, which has become more problematic this year. Headache: - The patient reports tension headaches located at the back of her neck and on the sides of her head. - She denies experiencing headaches in h er eye. - She describes two recent episodes of a very quick, instant pain on her right side that resolved spontaneously. Epistaxis: - The patient reports left-sided noseble eds, which have been occurring since last year, attributed to dryness. - She acknowledges she should resume usi ng her nasal spray to help with the dryness. Gastroesophageal reflux disease: - The patient continues to take omeprazo le daily for acid reflux and is due for a refill. Contraception Management: - The patient uses the NuvaRing for cont raception. Active w HEEL GUMMER Asthma and Allergies: - The patient takes montelukast as neede d and levocetirizine for allergies. - She has an albuterol inhaler for asthm a, and reports her breathing is fine. - She has a nasal spray which she uses a s needed but recently lost it. - Refills are requested for her medicati ons - Vaccines UTD Social History - Patient resides in [place]. - Considers herself a Type A, organized person but denies the mental stress associated with her aunt's OCD. - Currently in counseling. - Engages in workout classes paid for by her job. - Travel: She recently traveled to [facility] on for a baby shower. Health Maintenance - Plans to get her annual flu shot. - She had a recent eye exam a couple of months ago following an episode of peripheral vision loss, which was unremarkable. 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 - Depression and anxiety screenings were negative. - Continues with contraception managemen t using the NuvaRing. Review of Systems - Constitutional: Denies fever, chills. Reports weight fluctuation. Reports fatigue and feeling sleepy. - Eyes: Reports a recent episode of left peripheral vision loss with wavy lines that resolved. Reports increased photosensitivity in the left eye and difficulty driving at night. Denies eye pain, but right eye was sore earlier in the day. - ENT: Reports nasal dryness and bleedin g from the left nostril. Denies sore throat. - Respiratory: Denies any issues with br eathing. - Gastrointestinal: Reports occasional d iarrhea associated with metformin use. Denies abdominal pain or tenderness. - Musculoskeletal: Denies pain with hip and low back maneuvers. Reports past issues with back pain. Denies lower extremity swelling. - Neurological: Reports tension headache s and recent episodes of brief, sharp pain on the right side of her head. Denies headache in her eye. Denies dizziness or balance issues. Reports brain fog, difficulty focusing at work, and word- finding difficulties. - Psychiatric: Denies depression or anxi ety. Reports stable mood. Reports possible symptoms of seasonal affective disorder. - Integumentary: Reports brittle and pee ling nails. Physical Exam General: Well developed, well nourished, in no acute distress. Appears stated age. Head: Normocephalic, atraumatic. Eyes: Pupils are equal, round and reactive to light and accommodation. Conjunctivae are clear. Scleras nonicteric bilat. Vision grossly normal, although patient reports recent loss of peripheral vision and wavy vision in the left eye, which has since resolved. Increased sensitivity to light noted in the left eye. Ears: TMs clear AU, EACS WNL. Nose: Patent, without discharge. Dried blood L nares Neck: No carotid bruit bilat. Supple, no adenopathy or thyromegaly. Breast: Edu on SBE. Lungs: Clear to auscultation bilaterally. No rales, rhonchi or wheeze noted. Good air flow in all bourgeois. Heart: Regular rate and rhythm. No murmurs, click, rubs or gallops are noted. Abdomen: Bowel sounds present in all quadrants. The abdomen is soft, nontender, with no masses or organomegaly noted. No hernias are noted. Patient reports occasional diarrhea, possibly related to metformin. : Deferred. Reviewed recommendations for routine HEEL GUMMER. Pulses: Peripheral pulses are equal and palpable bilaterally. Extremities: No clubbing, cyanosis noted. Trace edema BLE Neurologic: Gait and station normal. Cranial Nerves 2-12 intact. Motor strength grossly symmetrical and intact. No sensory loss. Balance normal. Normal gait. Other than photophobia on the L, neuro exam is nonfocal. Skin: No rashes, ulcers, or lesions noted. Turgor is good. Skin color is good. Some peeling of finger nails Psych: Normal eye contact, affect and mood appropriate, and normal interactions. Patient is alert and appropriate to context. Results See below Medical Decision Making The patient is a 35-year-old female here for a complete physical exam. She has made excellent progress with her pre-diabetes, with her HbA1c dropping to 6.1% from a previous high of 6.7%, which is the best it has been. This improvement is likely secondary to weight loss and adherence to metformin. She reports new symptoms of fatigue, brain fog, difficulty focusing, and brittle nails. She is concerned about low ferritin as a possible cause. While her CBC is normal, a ferritin level was not checked with the recent labs. Her vitamin B12 remains on the low side of normal despite supplementation, and seasonal affective changes are also a consideration. An order for a ferritin level will be added to her next lab draw to investigate her symptoms further. The constellation of left-sided symptoms, including a recent, transient loss of peripheral vision in the left eye, increased photosensitivity in the same eye on exam, and recurrent left-sided epistaxis, is concerning, although her recent ophthalmology exam was normal. While these could be unrelated phenomena (e.g., migraine aura for vision changes, dry air for epistaxis), the unilaterality warrants further investigation to rule out an underlying intracranial process. Given these findings, a CT scan of the head/brain is indicated for a more thorough evaluation. The patient's chronic conditions, including GERD, allergies, and asthma, are stable on her current medication regimen. Medication refills will be provided. The patient's mood is stable and anxiety/depression screens are negative, but she was counseled on the benefits of acupuncture and light therapy for mood, particularly as she has [employer] funds to utilize. We will follow up on the CT results and repeat labs in 3-4 months. Plan 1. Visual Disturbance And Headache - The patient presents with a concerning cluster of left-sided symptoms, including a past episode of visual field loss, current photosensitivity, and epistaxis. - Although her recent ophthalmology exam was reassuring, the combination of symptoms warrants further investigation to rule out an intracranial cause. - A CT of the head and brain has been or dered urgently to evaluate these symptoms. - This will be processed through [employer], and the radiology department at [facility] will contact her for scheduling. - The patient was advised to be her own advocate to ensure the scan is completed within the current calendar year to utilize her FSA. - A follow-up visit will be scheduled to discuss the results; if normal, she will be notified via the patient portal. 2. Health Maintenance And Medication Man agement - Prescriptions for omeprazole, levoceti rizine, and a nasal spray will be renewed and sent to the [facility] pharmacy in [place], [place]. - The patient has adequate supplies of m etformin and montelukast. - Repeat non-fasting labs, including tre ritin and iron, are ordered to be completed in 3-4 months, prior to her next visit. - She was advised that acupuncture could be beneficial for mood and does not require a referral. - The use of a sleep lamp, which is FSA/ [facility] reimbursable, was suggested for mood regulation and seasonal affective disorder. - The patient will obtain her influenza vaccine at an outside facility. Patient Instructions - You are doing a great job with your he alth. Your A1c (a measure of your blood sugar control) has improved to 6.1%. - Continue taking Metformin 1500 mg ever y day as prescribed. - Keep up with your exercise, including Pilates. - We will order a lab test to check your iron storage levels (ferritin) to see if it is related to your fatigue, brain fog, and brittle nails. You will need to get your blood drawn for this. - Do not increase your iron supplements until we have the results of this test. - Continue taking your Vitamin B and Vit landis D3 supplements. - Make sure to attend your appointment w ith the rolling machine operator automatic (SOL[employer] ELECTRIC PRACTITIONER) on October 2025. - We have ordered a CT scan of your head and brain to investigate your recent left-sided symptoms, including the change in your vision. - Please expect a call from the radiolog y department at [facility] to schedule this scan. - If you do not hear from them soon, ple ase call them or send a message through the patient portal, so you can get the scan done this year. - Your prescriptions have been renewed a nd sent to the [facility] in [place], [place]. - Please get your annual flu shot. - You should start using your nasal spra y again to help with the nosebleeds from dryness. - We will have a follow-up appointment t o discuss the results of your CT scan. - Please have your follow-up blood work done in about 3-4 months, before your next visit. - You do not need a referral for acupunc ture if you decide to try it for improving your mood. Consent Patient was informed and verbally consented to the use of an ambient scribe for clinic note documentation during this visit. An additional 20 minutes was spent addressing the problem(s) noted at todays visit. This includes time spent before the visit reviewing the chart, time spent during the visit, and time spent after the visit on documentation reviewing laboratory results, diagnostic imaging, medications, performing a medically necessary evaluation, counseling on diagnoses, care coordination, ordering appropriate tests, ordering appropriate medications, review of tests performed by other providers, reporting test results with the patient, communication with other healthcare providers. [facility] Medical History History of iron deficiency anemia Headache GERD (gastroesophageal reflux disease) Sinusitis Asthma Surgical History No pertinent past surgical history Family History Maternal Grandmother Diabetes Cardiovascular disease Paternal Grandmother Cardiovascular disease Paternal Grandfather Cardiovascular disease Social History Household Members: None Both parents involved: No Caregiver staying overnight: No Housing: Apartment Are you a primary health care analyst to a significant other at home: No Do you presently have visiting nurse or other home services: No 75 years or older and lives alone: No Alcohol intake: current Alcohol intake frequency: holidays/special occasions only Patient Tobacco Use Status: Never used Tobacco e-Cigarette/Vaping Use: Never Used Second Hand Smoke Exposure: Yes service: No Current occupational status: employed Current occupation: [employer] Cognitive needs: Yes (memory is a little bad) Hearing needs: No Vision needs: No Questionnaire PHQ-9 Over the last 2 weeks, how often have you been bothered by any of the following problems? 1. Little interest or pleasure in doing things: not at all 2. Feeling down, depressed, or hopeless: not at all 3. Trouble falling or staying asleep, or sleeping too much: not at all 4. Feeling tired or having little energy: not at all 5. Poor appetite or overeating: not at all 6. Feeling bad about yourself - or that you are a failure or have let yourself or your family down: not at all 7. Trouble concentrating on things, such as reading the newspaper or watching television: not at all 8. Moving or speaking so slowly that other people could have noticed. Or the opposite - being so fidgety or restless that you have been moving around a lot more than usual: not at all 9. Thoughts that you would be better off or of hurting yourself in some way: not at all Total score: 0 Depression Screening Interpretation: Negative Depression Screening Done: Yes 72633 - PHQ-9 Billing: Yes Source: Developed by Drs. Manav Sales, Minerva Kramer, Yimi Emerson and colleagues, with an educational jermaine from [employer]. Thrive Questionnaire Date Thrive assessed: 09/01/25 I am a: Patient What is your living situation today?: I have a steady place to live Within the past 12 months, did the food you bought not last and you didn't have the money to get more?: Never true Within the past 12 months, did you worry whether your food would run out before you got money to buy more?: Never true Do you have trouble paying for medicines?: No Do you have trouble getting transportation to medical appointments?: No Do you have trouble paying your heating and electricity bill?: No Do you have trouble taking care of your child, family member or friend?: No Do you have trouble with day-to-day activities such as bathing, preparing meals, shopping, managing finances, etc.?: No Are you currently unemployed and looking for a job?: No Are you interested in more education?: No Please select the resources that you would like help with: None Currently or been in a relationship where the following occur: No concerns reported THRIVE Score: 0 AUDIT C Alcohol Use Questionnaire (AUDIT-C) 1. How often do you have a drink containing alcohol?: Never 3. How often do you have six or more drinks on one occasion?: Never Total Score: 0 Score Reviewed/Action Taken: Yes AILEEN-7 AMB Questionnaire AILEEN-7 Date AILEEN - 7 assessed: 09/01/25 Feeling nervous, anxious, or on edge: 0 = Not at all Not being able to stop or control worryin = Not at all Worrying too much about different things: 0 = Not at all Trouble relaxin = Not at all Being so restless that it is hard to sit still: 0 = Not at all Feeling afraid as if something awful might happen: 0 = Not at all Source: Developed by Drs. Manav Sales, Minerva Kramer, Yimi bauer nd colleagues, with an educational jermaine from [employer]. AILEEN-7 Assessment Billing AILEEN-7 Assessment Tool: AILEEN-7 Assessment 35087 Physical exam (Primary Care) Vital Signs: Last Vital Signs Temp 97.2 F 09/01/25 14:57 Pulse 72 09/01/25 14:57 Resp 12 09/01/25 14:57 BP 104/66 09/01/25 14:57 Pulse Ox 99 09/01/25 14:57 Oxygen Delivery Method Room Air 09/01/25 14:57 BMI result Body Mass Index 36.7 BMI Assessment/Plan discussion: High BMI High, discussed plan: lifestyle Tobacco/Smoking Status: Tobacco use Status Tobacco use date assessed 09/01/25 09/01/25 14:55 Patient Tobacco Use Status Never used Tobacco 09/01/25 14:55 e-Cigarette/Vaping Use Never Used 09/01/25 14:55 PHQ-9: PHQ-9 Score PHQ-9: Total score 0 09/01/25 14:55 Depression Screening Interpretation: Negative Thrive Assessment: Date of Thrive Assessment Date Thrive assessed 09/01/25 09/01/25 14:55 Currently or been in a relationship where the following occur: No concerns reported Results Reviewed Results Reviewed: Laboratory 08/25/25 Result Units Range Interpretation Provider Comments White Blood Count 6.3 X10*3/uL (4.8-10.8) Red Blood Count 4.94 X10*6/uL (4.20-5.50) Hemoglobin 14.6 g/dl (12.0-16.0) Hematocrit 43.8 % (37.0-47.0) Mean Corpuscular Volume 88.7 fL (80.0-98.0) Mean Corpuscular Hemoglobin 29.6 pg (27.0-33.0) Mean Corpuscular Hemoglobin Concent 33.3 g/dl (31.0-35.0) Red Cell Distribution Width 12.8 % (11.0-16.0) Platelet Count 315 X10*3/uL (160-400) Mean Platelet Volume 9.3 fL (9.4-12.3) Low Nucleated RBC Absolute Count (auto) 0.000 X10*3/uL (0.0-0.012) Nucleated Red Blood Cells % (auto) 0.0 /100WBC (0.0-0.2) Sodium Level 141 mmol/L (135-145) Potassium Level 4.0 mmol/L (3.3-5.1) Chloride Level 109 mmol/L (96-108) High Carbon Dioxide Level 24 mmol/L (22-29) Anion Gap 12 (12-20) Blood Urea Nitrogen 11 mg/dL (9-16) Creatinine 0.75 mg/dL (0.5-1.4) Estimated Creatinine Clearance Calc Not Reportable Estimat Glomerular Filtration Rate > 60 Random Glucose 133 mg/dL (60-115) High Estimated Average Glucose 128 mg/dL Hemoglobin A1c Percent 6.1 % (<6.0) High Calcium Level 9.2 mg/dL (8.4-10.2) Delta Total Bilirubin 0.4 mg/dL (0.0-1.0) Aspartate Amino Transf (AST/SGOT) 17 U/L (5-31) Alanine Aminotransferase (ALT/SGPT) 11 U/L (0-31) Alkaline Phosphatase 72 U/L (39-117) Total Protein 7.0 g/dL (6.5-8.0) Albumin 4.3 g/dL (3.5-5.0) Triglycerides Level 162 mg/dL (<150) High Cholesterol Level 171 mg/dL (<200) LDL Cholesterol, Calculated 92 mg/dL (<100) HDL Cholesterol 47 mg/dL (>40) Vitamin B12 Level 316 pg/mL (200-900) 25-Hydroxy Vitamin D Total 64.8 ng/mL (>30) Folate 9.6 ng/mL (> or = 4.0) Thyroid Stimulating Hormone (TSH) 1.84 uIU/mL (0.32-4.0) Urine Creatinine 434.67 mg/dL Urine Microalbumin 22.0 mg/L Urine Microalbumin/Creatinine Ratio 5.0 ug/mg cr (<30) Coding Level of Care Code Est Pt Level 3 (56299) Est Pt Prev Care 18-39y(69894) Diagnoses Adult general medical exam Z00.00 Prediabetes R73.03 Iron deficiency anemia, unspecified iron deficiency anemia type D50.9 Iron deficiency anemia type: unspecified iron deficiency Nonintractable headache, unspecified chronicity pattern, unspecified headache type R51.9 Headache type: unspecified Headache chronicity pattern: unspecified pattern Intractability: not intractable Photophobia of left eye H53.142 Visual changes H53.9 Left-sided epistaxis R04.0 Seasonal allergies J30.2 Gastroesophageal reflux disease with esophagitis without hemorrhage K21.00 Esophagitis bleeding: without hemorrhage Mild intermittent asthma without complication J45.20 Additional Codes AILEEN-7 Assessment Billing - AILEEN-7 Assessment Tool: AILEEN-7 Assessment 20355 ([id number]) PHQ-9 - 43102 - PHQ-9 Billing: Yes ([id number]) Assessment & Plan Assessment & Plan (1) Adult general medical exam: Onset Date: ~09/01/25 Code(s): Z00.00 - Encounter for general adult medical examination without abnormal findings Category: Medical (2) Prediabetes: Code(s): R73.03 - Prediabetes Category: Medical (3) Iron deficiency anemia: Comment: WELL CONTROLLED Code(s): D50.9 - Iron deficiency anemia, unspecified Category: Medical Qualifiers: Iron deficiency anemia type: unspecified iron deficiency Qualified Code(s): D50.9 - Iron deficiency anemia, unspecified (4) Headache: Code(s): R51.9 - Headache, unspecified Category: Medical Qualifiers: Headache type: unspecified Headache chronicity pattern: unspecified pattern Intractability: not intractable Qualified Code(s): R51.9 - Headache, unspecified (5) Photophobia of left eye: Code(s): H53.142 - Visual discomfort, left eye Category: Medical (6) Visual changes: Code(s): H53.9 - Unspecified visual disturbance Category: Medical (7) Left-sided epistaxis: Code(s): R04.0 - Epistaxis Category: Medical (8) Seasonal allergies: Comment: ALLERGY TESTING DONE ENT OF CT + ENVIRONMENTAL AND DOGS PLAN: STAY ON LEVOCETRIZINE Code(s): J30.2 - Other seasonal allergic rhinitis Category: Medical (9) GERD with esophagitis: Comment: WELL CONTROLLED ON OMEPRAZOLE 40MG Code(s): K21.00 - Gastro-esophageal reflux disease with esophagitis, without bleeding Category: Medical Qualifiers: Esophagitis bleeding: without hemorrhage Qualified Code(s): K21.00 - Gastro-esophageal reflux disease with esophagitis, without bleeding (10) Mild intermittent asthma without complication: Comment: EVALED ENT OF CT TOLD WELL CONTROLLED, OK TO CONT LACY PRN NO LACTOSE ALLERGY, PERHAPS SENSITIVE. Code(s): J45.20 - Mild intermittent asthma, uncomplicated Category: Medical Plan . Orders: Orders Hemoglobin A1c 3 Months D50.9 - Iron deficiency anemia, unspecified, R73.03 - Prediabetes IRON PROFILE 3 Months D50.9 - Iron deficiency anemia, unspecified, R73.03 - Prediabetes Vitamin D 25-OH Total 3 Months D50.9 - Iron deficiency anemia, unspecified, R73.03 - Prediabetes Ferritin 3 Months D50.9 - Iron deficiency anemia, unspecified, R73.03 - Prediabetes Vitamin B12 and Folate 3 Months D50.9 - Iron deficiency anemia, unspecified, R73.03 - Prediabetes Complete Blood Count no Diff 3 Months D50.9 - Iron deficiency anemia, unspecified, R73.03 - Prediabetes CT head/brain wo IV con Today H53.142 - Visual discomfort, left eye, H53.9 - Unspecified visual disturbance, R04.0 - Epistaxis, R51.9 - Headache, unspecified Medications: Refilled albuterol sulfate 90 mcg/actuation 2 puffs inhalation Q4-6H PRN 8.5 grams 0RF shortness of breath or wheezing 30 days omeprazole 40 mg PO DAILY 90 caps 3RF levocetirizine 5 mg PO DAILY PRN 90 tabs 2RF allergy symptoms Patient Instructions: Health screenings for women You should visit your health care provider from time to time, even if you are healthy. The purpose of these visits is to: Screen for medical issues Assess your risk for future medical problems Encourage a healthy lifestyle Update vaccinations and other preventive care services Help you get to know your provider in case of an illness Information Even if you feel fine, you should still see your provider for regular checkups. These visits can help you avoid problems in the future. For example, the only way to find out if you have high blood pressure is to have it checked regularly. High blood sugar and high cholesterol levels also may not have any symptoms in the early stages. A simple blood test can check for these conditions. There are specific times when you should see your provider or receive specific health screenings. The [place] Preventive Services Task Force publishes a list of recommended screenings. Below are screening guidelines for women ages 18 to 39. BLOOD PRESSURE SCREENING Your blood pressure should be checked at least once every 3 to 5 years if: Your blood pressure is in the normal range (top number less than 120 mm Hg and bottom number less than 80 mm Hg) You don't have risk factors for high blood pressure Ask your provider if you need your blood pressure checked more often if: The top number is 120 to 129 mm Hg or the bottom number is 70 to 79 mm Hg You have diabetes, heart disease, kidney problems, are overweight, or have certain other health conditions You have a first-degree relative with high blood pressure You are Black You had high blood pressure during a If the top number is 130 mm Hg or greater or the bottom number is 80 mm Hg or greater, this is considered stage 1 hypertension. Schedule an appointment with your provider to learn how you can reduce your blood pressure. Watch for blood pressure screenings in your area. Ask your provider if you can stop in to have your blood pressure checked. BREAST CANCER SCREENING Experts do not agree about the benefits of breast self-exams in finding breast cancer or saving lives. Talk to your provider about what is best for you. A screening mammogram is not recommended for most women under age 40. Your provider may discuss and recommend mammograms, MRI scans, or ultrasounds if you have an increased risk for breast cancer, such as: A mother or sister who had breast cancer at a young age (most often starting screening earlier than the age the close relative was diagnosed) You carry a high-risk genetic marker CERVICAL CANCER SCREENING Cervical cancer screening should start at age 21 years unless your provider advises otherwise. After the first test: Women ages 21 through 29 should have a Pap test every 3 years. Exoprts do not agree on whether HPV testing is recommended for this age group. Women ages 30 through 65 should be screened with either a Pap test every 3 years or the HPV test every 5 years or both tests every 5 years (called cotesting ). Women who have been treated for precancer (cervical dysplasia) should continue to have Pap tests for 20 years after treatment or until age 65, whichever is longer. If you have had your uterus and cervix removed (total hysterectomy), and you have not been diagnosed with cervical cancer or precancer (high grade cervical neoplasia), you do not need cervical cancer screening. CHOLESTEROL SCREENING Cholesterol screening should begin at: Age 45 for women with no known risk factors for coronary heart disease Age 20 for women with known risk factors for coronary heart disease Repeat cholesterol screening should take place: Every 5 years for women with normal cholesterol levels More often if changes occur in lifestyle (including weight gain and diet) More often if you have diabetes, heart disease, kidney problems, or certain other conditions DIABETES SCREENING You should be screened for diabetes starting at age 35 and then repeated every 3 years if you have no risk factors for diabetes. Screening may need to start earlier and be repeated more often if you have other risk factors for diabetes, such as: You have a first degree relative with diabetes. You are overweight or have obesity. You have high blood pressure, prediabetes, or a history of heart disease. Screening for diabetes should be done if you are planning to become and you are overweight and have other risk factors such as high blood pressure. DENTAL EXAM Go to the dentist once or twice every year for an exam and cleaning. Your dentist will evaluate if you need more frequent visits. EYE EXAM Have an eye exam every 5 to 10 years before age 40. If you have vision problems, have an eye exam every 2 years or more often if recommended by your provider. You should have an eye exam that includes an examination of your retina (back of your eye) at least every year if you have diabetes. IMMUNIZATIONS Commonly needed vaccines include: Flu shot: get one every year. COVID-19 vaccine: ask your provider what is best for you. Tetanus-diphtheria and acellular pertussis (Tdap) vaccine: have one at or after age 19 as one of your tetanus-diphtheria vaccines if you did not receive it as an adolescent. Tetanus-diphtheria: have a booster (or Tdap) every 10 years. Varicella vaccine: receive 2 doses if you never had chickenpox or the varicella vaccine. Hepatitis B vaccine: receive 2, 3, or 4 doses, depending on your exact circumstances. Measles, mumps, and rubella (MMR) vaccine: receive 1 to 2 doses if you are not already immune to MMR. Your provider can tell you if you are immune. Ask your provider about the human papillomavirus (HPV) vaccine if: You have not received the HPV vaccine in the past You have not completed the full vaccine series (you should catch up on this shot) Ask your provider if you should receive other immunizations if you have certain health problems that increase your risk for some diseases such as pneumonia. INFECTIOUS DISEASE SCREENING Women who are sexually active should be screened for chlamydia and gonorrhea up until age 25. Women 25 years and older should be screened for chlamydia and gonorrhea if at high risk. Screening for hepatitis C: All adults ages 18 to 79 should get a one-time test for hepatitis C. people should be screened at every . Screening for human immunodeficiency virus (HIV): All people ages 15 to 65 should get a one-time test for HIV. Depending on your lifestyle and medical history, you may also need to be sc reened for infections such as syphilis and HIV, as well as other infections. PHYSICAL EXAM All adults should visit their provider from time to time, even if they are healthy. The purpose of these visits is to: Screen for disease Assess your risk of future medical problems Encourage a healthy lifestyle Update your vaccinations and other preventive care services Maintain a relationship with a provider in case of an illness Your height, weight, and BMI should be checked at every exam. During your exam, your provider may ask you about: Depression and anxiety Diet and exercise Alcohol and tobacco use Safety issues, such as using seat belts, smoke detectors, and intimate partner violence Your medicines and risk for interactions SKIN SELF-EXAM Your provider may check your skin for signs of skin cancer, especially if you're at high risk, such as if you: Have had skin cancer before Have close relatives with skin cancer Have a weakened immune system OTHER SCREENING Talk with your provider about colon cancer screening if you have a strong family history of colon cancer or polyps, or if you have had inflammatory bowel disease or polyps yourself. Routine bone density screening of women under 40 is not recommended.
[2025-09-01 14:57] VITALS: BP 104/66; PULSE 72; RESP 12; TEMP 36.2; O2SAT 99; BMI 36.7
--- OUTSIDE RECORDS SUMMARY | 2025-09-02 00:05 | XMS_ITS | Clinical Summary ---
Author Organization [facility] Address [address] [place] [address] Care Team Providers Care Nutrition Services Aide Name Role Phone Gladis Wiley APRN Primary [...] Influenza Vaccine 04/25/2025 COVID-19 Vaccine (1 - 2024-2 6 season) 2025 HPV Vaccines (No Doses Required) Completed Pneumococcal Vaccine: Pediat matt (0-5 Years) and At-Risk Patients (6 to 49 Years) Aged Out No longer eligible b ased on patient's age to complete this topic Insurance [facility] PPO Care Teams Nutrition Services Aide Relationship Specialty Start Date End Date Gladis Wiley APRN [address] [place] [id number] PCP - General Family Medicine 12/19/24
== END 2025-09-01 15:37 | disposition home or self-care (01) ==
LOC: HO.HMCFM 14:48
PROVIDERS: PCP Nurse Practitioner Family; Visit Provider Nurse Practitioner Family
DX: Z00.00 Encounter for general adult medical examination without abnormal findings (principal); R73.03 Prediabetes; R51.9 Headache, unspecified; H53.142 Visual discomfort, left eye; H53.9 Unspecified visual disturbance; D50.9 Iron deficiency anemia, unspecified; J30.2 Other seasonal allergic rhinitis; K21.00 Gastro-esophageal reflux disease with esophagitis, without bleeding; J45.20 Mild intermittent asthma, uncomplicated

== ENCOUNTER → 2025-09-01 14:48 | Outpatient (BNVA) | payer BC, SELFPAY | PROVIDERS: PCP Nurse Practitioner Family; Visit Provider Nurse Practitioner Family | DX: Z00.00 Encounter for general adult medical examination without abnormal findings (principal); R73.03 Prediabetes; H53.142 Visual discomfort, left eye; D50.9 Iron deficiency anemia, unspecified; J45.20 Mild intermittent asthma, uncomplicated; R51.9 Headache, unspecified; H53.9 Unspecified visual disturbance; R04.0 Epistaxis; J30.2 Other seasonal allergic rhinitis; K21.00 Gastro-esophageal reflux disease with esophagitis, without bleeding | CPT/HCPCS: 96127 ==

== ENCOUNTER 2025-09-08 10:45 | Outpatient (REF) | payer BC, SELFPAY ==
--- NOTE | ~2025-09-08 | CT_ITS ---
EXAMINATION: CT HEAD WITHOUT CONTRAST CLINICAL INFORMATION: Sudden visual field loss left, has since returned. Headaches, feels sense of fullness behind L5. COMPARISON: No prior available. TECHNIQUE: Contiguous axial imaging was performed from the skull base to vertex without intravenous administration of contrast. This CT examination was performed using dose optimization techniques as appropriate, variously including the following: *Automated exposure control *Adjustment of mA and/or kV according to patient size (this includes techniques or standardized protocols for targeted exams where dose is matched to indication/reason for exam; i.e. extremities or head) *Use of iterative reconstruction technique FINDINGS: There is no evidence of intracranial hemorrhage or extra-axial fluid collection. There is no mass effect, or edema. No CT evidence of acute territorial infarct. Ventricles, sulci, and cisterns are normal in size and configuration for patient age. No hydrocephalus. No midline shift. Negative hyperdense MCA sign. Negative insular ribbon sign. There are no white matter attenuation abnormalities. Normal pituitary. Globes and orbital contents image normally. No extracranial soft tissue abnormalities. The paranasal sinuses, mastoid air cells, and tympanic cavities are normally aerated. There is left nasal septal deviation with a small spur. No suspicious bony abnormalities. There are no acute fractures evident. CT/CT head/brain wo IV con IMPRESSION: No acute intracranial abnormality. Electronically signed by: Denilson De La Paz MD 09/08/2025 11:27 AM SANDR[facility]
== END 2025-09-08 10:46 | disposition home or self-care (01) ==
LOC: HO.CT 10:45
PROVIDERS: PCP Nurse Practitioner Family; Visit Provider Nurse Practitioner Family
DX: H53.142 Visual discomfort, left eye (principal); R04.0 Epistaxis; R51.9 Headache, unspecified
CPT/HCPCS: 70450

== ENCOUNTER → 2025-09-08 10:53 | Outpatient (BNV) | payer BC, SELFPAY | PROVIDERS: PCP Nurse Practitioner Family; Visit Provider Radiology Diagnostic Radiology | DX: I10 Essential (primary) hypertension (principal); H53.142 Visual discomfort, left eye | CPT/HCPCS: 70450 ==